=== PATIENT | female | born 1960 | race Caucasian/White ===

== ENCOUNTER 2024-09-16 11:26 | Outpatient (REF) | payer MEDICARE, MEDICAID, SELFPAY ==
--- OUTSIDE RECORDS SUMMARY | 2024-09-16 13:53 | XMS_ITS | Encounter Summary ---
Author Organization [employer] Address [address] [facility] 7t [place] [address] Care Team Providers Care Manager Service Desk Name Role Phone Micheline Garcia MD Primary Care Provider [phone] Reason for Visit * Reason Comments Med Refill Encounter Details Date Type Department Care Team ([facility] st Contact Info) Description 11/26/2023 Refill [facility] MED & PEDS [address] [place], [place] [phone] Micheline Garcia MD [address] [place] [address] Gastroesophageal reflux disease without esophagitis Social History Tobacco Use Types Packs/Day Years Used Date Smoking Tobacco: Every Day Cigarettes Passive Smoke Exposure: Current Smokeless Tobacco: Never Alcohol Use Standard Drinks/Week Comments Not Currently 0 (1 standard drink = 0.6 oz pur e alcohol) Housing Stability Answer Date Recorded What is your housing situation today? I have jayacira fatima 07/25/[address] you li ve. Do you have problems with any of the following? None of the above 07/25/2023 Food Insecurity Answer Date Recorded Within the past 12 months, y ou worried that your food would run out before you got money to buy more: Never True 07/25/2023 Within the past 12 months,th e food you bought just didn't last and you didn't have enough money to get more: Never True Transportation Answer Date Recorded In the past 12 months, has l ack of transportation kept you from medical appts, meetings, work or from getting things needed for daily living? No 07/25/2023 Utilities Answer Date Recorded In the past 12 months, has t he [employer], gas, oil or water company threatened to shut off services in your home? No 07/25/2023 Comments Unknown Sex and Gender Information Value Date Recorded Sex Assigned at Female 04/02/2022 10:20 AM EDT Legal Sex Female 10:20 AM EDT Gender Identity Female 04/02/2022 10:20 AM EDT Sexual Orientation Straight 04/02/2022 10 :20 AM EDT documented as of this encounter Plan of Treatment Upcoming Encounters Date Type Department Care Team (Late st Contact Info) Description 10/14/2024 3:00 PM EDT Medication Management [facility] MED & PEDS [address] [place] [address] Emeli Montalvo PharmD [address] [place] [address] 11/25/2024 2:45 PM EDT Clinical Support [facility] MED & PEDS [address] [place] [address] Lakshmi Lambert, AJAY [address] [place] [address] documented as of this encounter Visit Diagnoses Diagnosis Gastroesophageal reflux disease without esophagitis Esophageal reflux documented in this encounter Care Teams Manager Service Desk Relationship Specialty Start Date End Date Micheline Garcia MD [address] [place] [address] PCP - General Family Medicine 06/03/18 documented as of this encounter
--- OUTSIDE RECORDS SUMMARY | 2024-09-16 13:53 | XMS_ITS | Encounter Summary ---
Author Organization [employer] Address [address] [facility] 7t [place] [address] Care Team Providers Care Environmental Field Technician Name Role Phone Micheline Garcia MD Primary Care Provider [phone] Reason for Visit * Reason Onset Date Comments Med Refill 12/09/2023 Encounter Details Date Type Department Care Team ([facility] st Contact Info) Description 12/09/2023 Telephone [facility] MEDICINE [address] [place] [address] Micheline Garcia MD [address] [place] [address] Med Refill Social History Tobacco Use Types Packs/Day Years Used Date Smoking Tobacco: Every Day Cigarettes Passive Smoke Exposure: Current Smokeless Tobacco: Never Alcohol Use Standard Drinks/Week Comments Not Currently 0 (1 standard drink = 0.6 oz pur e alcohol) Housing Stability Answer Date Recorded What is your housing situation today? I have jaya akua 07/25/[address] you li [...] the past 12 months, has t he electric, gas, oil or water [employer] threatened to shut off services in your home? No 07/25/2023 Comments Unknown Sex and Gender Information Value Date Recorded Sex Assigned at Female 04/02/2022 10:20 AM EDT Legal Sex Female 10:20 AM EDT Gender Identity Female 04/02/2022 10:20 AM EDT Sexual Orientation Straight 04/02/2022 10 :20 AM EDT documented as of this encounter Miscellaneous Notes * Telephone Encounter - Martin Aburto - 12/09/2023 9:51 AM EDT TC from pt requesting medication refill. Medications needing refill: morphine CR (MS Contin) 60 MG 12 hr tablet To be sent to: [facility] documented in this encounter Plan of Treatment Upcoming Encounters Date Type Department Care Team (Late st Contact Info) Description 10/14/2024 3:00 PM EDT Medication Management [facility] MED & PEDS [address] [place] [address] Emeli Montalvo, PharmD [address] [place] [address] 11/25/2024 2:45 PM EDT Clinical Support [facility] MED & PEDS [address] [place] [address] Lakshmi Lambert, RN [address] [place] [address] documented as of this encounter Visit Diagnoses Not on filedocumented in this encounter Care Teams Environmental Field Technician Relationship Specialty Start Date End Date Micheline Garcia MD [address] [place] [address] PCP - General Family Medicine 06/03/18 documented as of this encounter
--- OUTSIDE RECORDS SUMMARY | 2024-09-16 13:53 | XMS_ITS | Encounter Summary ---
Author Organization [employer] Address [address] [facility] 7t [place] [address] Care Team Providers Care Wafer Fabricator Name Role Phone Micheline Garcia MD Primary Care Provider [phone] Reason for Visit * Reason Onset Date Comments Medication Question 07/30/2023 Encounter Details Date Type Department Care Team ([facility] st Contact Info) Description 07/30/2023 Telephone [facility] MEDICINE [address] [place] [address] Micheline Garcia MD [address] [place] [address] Medication Question Social History Tobacco Use Types Packs/Day Years Used Date Smoking Tobacco: Every Day Cigarettes Passive Smoke Exposure: Current Smokeless Tobacco: Never Alcohol Use Standard Drinks/Week Comments Not Currently 0 (1 standard drink = 0.6 oz pur e alcohol) Housing Stability Answer Date Recorded What is your housing situation today? I have jaya fatima 07/25/[address] you [...] the past 12 months, has t he [employer] oil or water [employer] threatened to shut off services in your home? No 07/25/2023 Comments Unknown Sex and Gender Information Value Date Recorded Sex Assigned at Female 04/02/2022 10:20 AM EDT Legal Sex Female 10:20 AM EDT Gender Identity Female 04/02/2022 10:20 AM EDT Sexual Orientation Straight 04/02/2022 10 :20 AM EDT documented as of this encounter Miscellaneous Notes * Telephone Encounter - Joelle Mello LPN - 07/30/2023 11:56 AM EST Please review message below . Insurance denied pa * Telephone Encounter - Martin Aburto - 07/30/2023 10:01 AM EST Tc from pt calling in regarding morphine CR (MS Contin) 60 MG 12 hr tablet. Pt stated insurance hasnot authorized medication and is requesting an alternative prescription. If any questions please contact pt at [phone]. documented in this encounter Plan of Treatment Upcoming Encounters Date Type Department Care Team (Late st Contact Info) Description 10/14/2024 3:00 PM EDT Medication Management [facility] MED & PEDS [address] [place] [address] Emeli Montalvo, PharmD [address] [place] [address] 11/25/2024 2:45 PM EDT Clinical Support [facility] MED & PEDS [address] [place] [address] Lkashmi Lambert, AJAY [address] [place] [address] documented as of this encounter Visit Diagnoses Not on filedocumented in this encounter Care Teams Wafer Fabricator Relationship Specialty Start Date End Date Micheline Garcia MD [address] [place], [place] PCP - General Family Medicine 1/1/19 documented as of this encounter
--- OUTSIDE RECORDS SUMMARY | 2024-09-16 13:54 | XMS_ITS | Encounter Summary ---
Author Organization [employer] Address [address] [facility] 7 [place] [address] Care Team Providers Care Vibration Analyst Name Role Phone Micheline Garcia MD Primary Care Provider [phone] Reason for Visit * Reason Onset Date Comments Appointment Request 07/11/2022 Encounter Details Date Type Department Care Team (Late Contact Info) Description 07/11/2022 Telephone [facility] MEDICINE [address] [place] [address] Micheline Garcia MD [address] [place] [address] Appointment Request Social History Tobacco Use Types Packs/Day Years Used Date Smoking Tobacco: Every Day Cigarettes Alcohol Use Standard Drinks/Week Comments Not Currently 0 (1 standard drink = 0.6 oz pur e alcohol) Comments Unknown Sex and Gender Information Value Date Recorded Sex Assigned at Female 04/02/2022 10:20 AM EDT Legal Sex Female 10:20 AM EDT Gender Identity Female 04/02/2022 10:20 AM EDT Sexual Orientation Straight 04/02/2022 10 :20 AM EDT documented as of this encounter Miscellaneous Notes * Telephone Encounter - Martinez Shine - 07/11/2022 9:16 AM EST Tc from pt requesting to r/s appt on 07/11/21 ( [employer] ) Please contact pt at [phone] documented in this encounter Plan of Treatment Upcoming Encounters Date Type Department Care Team (Late Contact Info) Description 10/14/2024 3:00 PM EDT Medication Management [facility] MED & PEDS [address] [place] [address] Emeli Montalvo, RaymundoD [address] [place] [address] 11/25/2024 2:45 PM EDT Clinical Support [facility] MED & PEDS [address] [place] [address] Lakshmi Lambert, AJAY [address] [place] [address] documented as of this encounter Visit Diagnoses Not on filedocumented in this encounter Care Teams Vibration Analyst Relationship Specialty Start Date End Date Micheline Garcia MD [address] [place] [address] PCP - General Family Medicine 06/03/18 documented as of this encounter
--- OUTSIDE RECORDS SUMMARY | 2024-09-16 13:54 | XMS_ITS | Encounter Summary ---
Author Organization [facility] [employer] Address [address] [place] [address] 7t [place] [address] Care Team Providers Care Negotiator Name Role Phone Micheline Garcia MD Primary Care Provider [phone] Encounter Details Date Type Department Care Team ([facility] Contact Info) Description 04/11/2023 Abstract [facility] MEDICINE [address] [place] [address] Dyan Dwyer Social History Tobacco Use Types Packs/Day Years [...] Description 10/14/2024 3:00 PM EDT Medication Management [facility] MED & PEDS [address] [place] [address] Emeli Montalvo, RaymundoD [address] [place] [address] 11/25/2024 2:45 PM EDT Clinical Support [facility] MED & PEDS [address] [place] [address] Lakshmi Lambert, RN [address] [place] [address] documented as of this encounter Procedures Procedure Name Priority Date/Time Associated Diagnosis Comments COLONOSCOPY Routine 11/06/2012 documented in this encounter Results * Colonoscopy (11/06/2012) Colonoscopy Normal Normal Narrative Dyan Dwyer - 11/06/2012 Recommended 5 year follow up us Historical Provider HEALTH MAINTENANCE Final Result documented in this encounter Visit Diagnoses Not on filedocumented in this encounter Care Teams Negotiator Relationship Specialty Start Date End Date Micheline Garcia MD [address] [place] [address] PCP - General Family Medicine 06/03/18 documented as of this encounter
--- OUTSIDE RECORDS SUMMARY | 2024-09-16 13:54 | XMS_ITS | Clinical Summary ---
Author Organization [employer] Address [address] [place] [address] 7t [place] [address] Care Team Providers Care Pictures Editor Name Role Phone Micheline Garcia MD Primary Care Provider [phone] Allergies Active Allergy Reactions Criticality Noted Date Comments Barium Sulfate 11/15/2022 Other reaction(s): unknown Codeine 11/15/2022 Diazepam 11/15/2022 Egg White (Egg Protein) 05/17/2017 Egg-Derived Products 05/17/2017 Other reaction(s): diarrhea Germanium Diarrhea 11/15/2022 Naproxen Angioedema,Hives 05/23/2017 Penicillin G 03/07/2023 Penicillins 12/22/2012 Other reaction(s): Unknown Medications glucose blood (FREESTYLE LITE) test strip 1 each by Other route in the morning, at noon, and at bedtime. 07/20/19 22 Active albuterol (Proventil HFA) 108 (90 Base) MCG/ACT inhaler Inhale 2 puffs every 6 (six) hours if needed for wheezing. 18 g 2 11/16/19 23 Active atorvastatin (Lipitor) 40 MG tabletIndicatio ns:Poorly controlled diabetes mellitus (CMS/HCC) TAKE ONE TABLET BY MOUTH AT BEDTIME 90 tablet 06/27/19 24 Active cholecalciferol (Vitamin D-3) 50 MCG (1999) tablet Take 1 tab orally daily 30 tablet 11 07/12/19 24 Active Fluticasone Furoate-Vilante rol (Breo Ellipta) 50-25 MCG/ACT aerosol powder Inhale 1 puff 2 times daily. 60 each 11 07/12/19 24 Active gabapentin (Neurontin) 400 MG capsule TAKE ONE CAPSULE THREE TIMES DAILY 90 capsule 1 06/08/19 25 Active acetaminophen (Tylenol 8 Hour) 650 MG ER tablet TAKE ONE TABLET BY MOUTH THREE TIMES DAILY NEEDED FOR PAIN 90 tablet 06/29/19 25 Active cetirizine (ZyrTEC) 10 MG tabletIndicatio ns:Mixed simple and mucopurulent chronic bronchitis (CMS/HCC) TAKE ONE TABLET EVERY DAY 30 tablet 5 07/09/19 25 Active naloxone (Narcan) 4 mg/0.1 mL nasal spray Administer 1 spray (4 mg) into affected nostril(s) if needed for opioid reversal. 2 each 1 07/30/19 25 Active amitriptyline (Elavil) 150 MG tablet TAKE ONE TABLET EVERY NIGHT AT BEDTIME 30 tablet 1 08/25/19 25 Active morphine CR (MS Contin) 60 MG 12 hr tabletIndicatio ns:Chronic pain syndrome Take 1 tablet (60 mg) by mouth 2 times daily. Do not crush, chew, or split. 60 tablet 09/01/19 25 025 Active albuterol (2.5 MG/3ML) 0.083% nebulizer solutionIndicat ions:Chronic obstructive pulmonary disease with acute lower respiratory infection (CMS/HCC) INHALE ONE AMPULE USING A NEBULIZER EVERY 4 HOURS NEEDED 90 mL 1 09/02/19 25 Active empagliflozin (Jardiance) 25 MG Take 1 tablet (25 mg) by mouth Once per day. 90 tablet 3 09/17/19 25 026 Active fluticasone (Flonase) 50 MCG/ACT nasal spray Administer 1-2 sprays into each nostril Once per day. 16 g 11 09/17/19 25 026 Active Omeprazole 20 MG tablet delayed-release Take 1 tablet (20 mg) by mouth Once per day. 30 tablet 3 09/17/19 25 Active SUMAtriptan (Imitrex) 25 MG tablet Take 1 tablet (25 mg) by mouth 1 (one) time if needed for migraine for up to 9 doses. 9 tablet 09/17/19 25 Active Dulaglutide (Trulicity) 0.75 MG/0.5ML solution auto-injectorIn dications:Poorl y controlled diabetes mellitus (CMS/HCC) Inject 0.75 mg under the skin 1 (one) time per week. 2 mL 2 09/17/19 25 Active albuterol (2.5 MG/3ML) 0.083% nebulizer solution Inhale 3 mL every 4 (four) hours. 02/18/20 19 025 Discontinued empagliflozin (Jardiance) 25 MG Take 1 tablet (25 mg) by mouth Once per day. 90 tablet 3 01/09/20 24 025 Discontinued(R eorder (will not trigger notification to Pharmacy)) amitriptyline (Elavil) 150 MG tablet TAKE ONE TABLET EVERY NIGHT AT BEDTIME 30 tablet 1 06/29/19 25 025 Discontinued morphine CR (MS Contin) 60 MG 12 hr tabletIndicatio ns:Chronic pain syndrome Take 1 tablet (60 mg) by mouth 2 times daily. Do not crush, chew, or split. Do not start before July 31, 2024. 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 08/27/2023 T2DM (type 2 diabetes mellitus) 11/15/2022 Ingrown toenail 05/04/2022 Osteopenia 01/01/2022 Poorly controlled diabetes mellitus 08/15/2018 Chronic pain syndrome 08/08/2016 Schizophrenia 07/03/2016 Dyspnea 09/12/2012 Chronic obstructive lung disease 01/03/2012 Depressive disorder 01/03/2012 Gastroesophageal reflux disease 01/03/2012 Lumbago 01/03/2012 Obesity 01/03/2012 Tobacco use disorder, continuous 01/03/2012 Resolved Problems Problem Noted Date Diagnosed Date Resolved Date Atrial fibrillation 05/04/2022 03/12/20 23 Encounters Date Type Department Care Team Description 09/16/2024 11:00 AM EDT Office Visit [facility] [address] [place] [address] Micheline Garcia MD Chronic obstructive pulmonary disease, unspecified COPD type (CMS/HCC) (Primary Dx); Osteopenia, unspecified location; Poorly controlled diabetes mellitus (CMS/HCC); Schizophreniform disorder (CMS/HCC); Long-term current use of opiate analgesic; Type 2 diabetes mellitus without complication, without long-term current use of insulin (CMS/HCC) 09/16/2024 Travel 09/15/2024 Telephone [facility] [address] [place] [address] Emeli Montalvo PharmD Appointment Request 09/10/2024 2:00 PM EDT Clinical Support [facility] [address] [place] [address] Lakshmi Lambert RN Chronic pain syndrome (Primary Dx); Long-term current use of opiate analgesic 09/10/2024 Telephone [facility] [address] [place] [address] Micheline Garcia MD 09/10/2024 Telephone [facility] [address] [place] [address] Lakshmi Lambert RN 09/10/2024 Travel 09/08/2024 Orders Only [facility] [address] [place] [address] Micheline Garcia MD Type 2 diabetes mellitus without complication, without long-term current use of insulin ([facility]) (Primary Dx) 09/08/2024 Telephone [facility] [address] [place] [address] Emeli Montalvo PharmD 09/01/2024 Refill [facility] [address] [place] [address] Micheline Garcia MD Chronic obstructive pulmonary disease with acute lower respiratory infection ([facility]/HCC) (Primary Dx) 08/31/2024 Refill [facility] [address] [place] [address] Micheline Garcia MD Chronic pain syndrome 08/24/2024 Refill [facility] [address] [place] [address] Micheline Garcia MD 08/14/2024 Population Health Risk Score [facility] ([facility] Department [address] [place] [address] Provider, Population Health Generic 07/30/2024 Refill [facility] [address] [place] [address] Lakshmi Lambert RN Chronic pain syndrome 07/30/2024 Refill [facility] [address] [place] [address] Micheline Garcia MD 07/30/2024 Telephone [facility] [address] [place] [address] Micheline Garcia MD Med Refill 07/07/2024 Refill [facility] [address] [place] [address] Micheline Garcia MD Mixed simple and mucopurulent chronic bronchitis (CMS/HCC) 07/01/2024 Refill [facility] [address] [place] [address] Micheline Garcia MD Chronic pain syndrome 06/27/2024 Refill [facility] [address] [place], [place] [phone] Micheline Garcia MD from Last 3 Months Immunizations Name Administration Dates Next Due Hep B, adult 05/08/2011 Tdap 04/08/2012 Social History Tobacco Use Types Packs/Day Years Used Date Smoking Tobacco: Every Day Cigarettes Passive Smoke Exposure: Current Smokeless Tobacco: Never Tobacco Cessation:Ready to Q uit: Not Asked; Counseling Given: Not Answered Alcohol Use Standard Drinks/Week Comments Not Currently 0 (1 standard drink = 0.6 oz pur e alcohol) Alcohol Answer Date Recorded How often do you have a drink containing alcohol ? 0 09/16/2024 How many drinks containing a lcohol do you have on a typical day when you are drinking? 1 09/16/2024 How often do you have six or more drinks on one occasion? 0 09/16/2024 Depression Answer Date Recorded Patient Health Questionnaire-9 Score 11 09/16/2024 Patient Health Questionnaire-9 Score 11 09/16/2024 Last PHQ-9: Questionnaire Data Not on file 0 09/16/2024 Housing Stability Answer Date Recorded What is your housing situation today? I have housing today, but I am worried about losing housing in the future 09/16/[address] you li ve. Do you have problems with any of the following? Pests such as bugs, ants, or mice;Mold 09/16/2024 Food Insecurity Answer Date Recorded Within the past 12 months, y ou worried that your food would run out before you got money to buy more: Often true 09/16/2024 Within the past 12 months,th e food you bought just didn't last and you didn't have enough money to get more: Often true Transportation Answer Date Recorded In the past 12 months, has l ack of transportation kept you from medical appts, meetings, work or from getting things needed for daily living? Yes, it has kept me from medical appointments or getting medications. 09/16/2024 Utilities Answer Date Recorded In the past 12 months, has t he electric, gas, oil or water company threatened to shut off services in your home? No 09/16/2024 Depression Answer Date Recorded Patient Health Questionnaire-2 Score 4 09/16/2024 Internet Access Answer Date Recorded Internet Access Q1 Yes 09/16/2024 Internet Access Q2 Not on file 09/16/2024 Comments Unknown Sex and Gender Information Value Date Recorded Sex Assigned at Female 04/02/2022 10:20 AM EDT Legal Sex Female 10:20 AM EDT Gender Identity Female 04/02/2022 10:20 AM EDT Sexual Orientation Straight 04/02/2022 10 :20 AM EDT Last Filed Vital Signs Vital Sign Reading Time Taken Comments Blood Pressure 152/78 09/16/2024 10:34 AM EDT Pulse 84 09/16/2024 10:34 AM EDT Temperature 36.8 ??C (98.2 ??F) 09/16/2024 10:34 AM E DT Respiratory Rate 18 09/16/2024 10:34 AM EDT Oxygen Saturation 95% 09/16/2024 10:34 AM EDT Inhaled Oxygen Concentration - - Weight 81.2 kg (179 lb) 09/16/2024 10:34 AM EDT Height 167.6 cm (5' 6 ) 09/16/2024 10:34 AM EDT Body Mass Index 28.89 09/16/2024 10:34 AM EDT Plan of Treatment Upcoming Encounters Date Type Department Care Team (Late st Contact Info) Description 10/14/2024 3:00 PM EDT Medication Management [facility] [address] [place] [address] Emeli Montalvo, PharmD [address] [place] [address] 11/25/2024 2:45 PM EDT Clinical Support [facility] [address] [place] [address] Lakshmi Lambert, RN [address] [place], [place] [phone] Health Maintenance Due Date Last Done Comments CT Colonography 1962 FIT DNA/Cologuard 1962 FIT 1962 FOBT 1962 HIV Screening 1962 Sigmoidoscopy 1962 Diabetes: Foot Exam 1972 Eye Exam 1972 Hepatitis C Screening 1980 Pneumococcal Vaccine: 50+ Years (1 of 2 - PCV) 1981 HPV/Cotest 1992 Hepatitis B Vaccines (2 of 3 - 19+ 3-dose series) 06/05/2011 05/08/2011 Zoster Vaccines (1 of 2) 2012 Cervical Cancer Screening 10/08/2016 Pap Smear 10/08/2016 10/08/2013 Colonoscopy 11/06/2017 11/06/2012 Colorectal Cancer Screening 11/06/2017 Diabetes: Urine Protein Screening 09/30/2021 09/30/2020 Lipid Panel 09/30/2021 09/30/2020 DTaP/Tdap/Td Vaccines (2 - Td or Tdap) 04/08/2022 04/08/2012 RSV Patients and Patients Aged 60 years or older (1 - Risk 60-74 years 1-dose series) 2022 Mammogram 12/19/2023 12/18/2021 COVID-19 Vaccine ( - season) 2024 Influenza Vaccine (#1) 2024 Tobacco Screening 07/15/2024 07/15/2023 Diabetes: Hemoglobin A1C 12/16/2024 025, 01/09/2024, 07/12/2023, Additional history exists Depression Monitoring 03/18/2025 09/16/2024, 025 Alcohol/Substance Use Screening 09/16/2025 09/16/2024 Depression Screening 09/16/2025 09/16/2024, 09/17/19 25 SDOH Screening 09/16/2025 09/16/2024 HIB Vaccines Aged Out No longer eligi ble based on patient's age to complete this topic HPV Vaccines Aged Out No longer eligi ble based on patient's age to complete this topic Hepatitis A Vaccines Aged Out No long er eligible based on patient's age to complete this topic IPV Vaccines Aged Out No longer eligi ble based on patient's age to complete this topic Meningococcal Vaccine Aged Out No nicol jenna eligible based on patient's age to complete this topic RSV under 20 months Aged Out No longe r eligible based on patient's age to complete this topic Rotavirus Vaccines Aged Out No longer eligible based on patient's age to complete this topic Procedures Procedure Name Priority Date/Time Associated Diagnosis Comments POCT GLUCOSE Routine 09/16/2024 10:36 AM EDT Type 2 diabetes mellitus without complication, without long-term current use of insulin ([facility]) POCT GLYCATED HEMOGLOBIN, TOTAL Routine 09/16/2024 10:36 AM EDT Type 2 diabetes mellitus without complication, without long-term current use of insulin ([facility]) POCT JOSE ROBERTO-14 URINE DRUG SCREEN Routine 09/10/2024 2:08 PM EDT Long-term current use of opiate analgesic Chronic pain syndrome HM MAMMOGRAPHY Routine 12/18/2021 ALBUMIN, RANDOM URINE W/CREATININE Routine 09/30/2020 9:57 AM EDT LIPID PANEL, STANDARD Routine 09/30/2020 9:57 AM EDT HM PAP/HPV Routine 10/08/2013 COLONOSCOPY Routine 11/06/2012 from Last 3 Months or Most Recently Relevant to Health Maintenance Results * (ABNORMAL) POCT A1C (09/16/2024 10:36 AM EDT) Hemoglobin A1C 10.6(A) 4.0 - 6.0 % QC Media Lot # Comment:[id number] Lot# Expiration Date Comment:04/21/2026 Blood 09/16/2024 10:3 6 AM EDT Micheline Garcia MD POINT OF CARE TEST ENTER/EDIT ORDERABLES Final Result * (ABNORMAL) POCT glucose manually resulted (09/16/2024 10:36 AM EDT) Glucose Blood, POC 416(A) 60 - 200 mg/dL QC Media Lot # Comment:[id number] Lot# Expiration Date Comment:12/03/2024 Blood Capillary blood specimen / Unknown 09/16/2024 10:36 AM EDT Micheline Garcia MD POINT OF CARE TEST ENTER/EDIT ORDERABLES Final Result * POCT JOSE ROBERTO-14 Urine Drug Screen (09/10/2024 2:08 PM EDT) Opiate Screen, Urine Positive TCA, Urine Positive Urine Urine specimen obtained by clean catch procedure / Unknown 09/10/2024 2:08 PM EDT Narrative Lakshmi Lambert RN - 09/10/2024 2:08 PM EDT Lot# [id number] Exp: 01-20-26 Micheline Garcia MD POINT OF CARE TEST ENTER/EDIT ORDERABLES Final Result * Mammography (12/18/2021) Mammogram performed Anatomical Region Laterality Modality Other Historical Provider HEALTH MAINTENANCE Final Result * ALBUMIN, RANDOM URINE W/CREATININE (09/30/2020 9:57 AM EDT) Microalbumin Urine 0.5 See Note: mg/dL [facility] Comment: Reference Range: ?? Reference Range Not established Microalb/Creat Ratio 6 <30 mcg/mg creat [facility] Comment: ?? The ADA defines abnormalities in albumin excretion as follows: ?? Category ? Result (mcg/mg creatinine) ?? Normal ?<30 Microalbuminuria ? 30-299 ?? Clinical albuminuria ?? > OR = 300 ?? The ADA recommends that at least two of three specimens collected within a 3-6 month period be abnormal before considering a patient to be within a diagnostic category. Creatinine, Urine 77 20 - 275 mg/dL [facility] 09/30/2020 9:57 AM EDT Micheline Garcia MD LAB URINE ORDERABLES Final Re sult [facility] [address] * (ABNORMAL) LIPID PANEL, STANDARD (09/30/2020 9:57 AM EDT) Chol/HDLC Ratio 2.5 <5.0 (calc) [facility] Cholesterol, Total 108 <200 mg/dL [facility] HDL Cholesterol 43(L) > OR = 50 mg/dL [facility] LDL Cholesterol 41 mg/dL (calc) [facility] Comment: Reference range: <100 ?? Desirable range <100 mg/dL for primary prevention; ?? <70 mg/dL for patients with CHD or diabetic patients ?? with > or = 2 CHD risk factors. ?? LDL-C is now calculated using the Casimiro ?? calculation, which is a validated novel method providing ?? better accuracy than the Friedewald equation in the ?? estimation of LDL-C. ?? Alexandre HUFF et al. ASHLEIGH. 2013;310(19): 6547-4586 ?? (http://education.QuestDiagnostics.IndustryTrader.com/faq/YIM196) Non-HDL Cholesterol 65 <130 mg/dL (calc) [facility] Comment: For patients with diabetes plus 1 major ASCVD risk ?? factor, treating to a non-HDL-C goal of <100 mg/dL ?? (LDL-C of <70 mg/dL) is considered a therapeutic ?? option. Triglycerides 160(H) <150 mg/dL [facility] 09/30/2020 9:57 AM EDT Micheline Garcia MD LAB BLOOD ORDERABLES Final Re sult [facility] [address] * Pap Smear (10/08/2013) Pap smear performed Historical Provider HEALTH MAINTENANCE Final Result * Colonoscopy (11/06/2012) Colonoscopy Normal Normal Narrative Dyan Dwyer - 11/06/2012 Recommended 5 year follow up Historical Provider HEALTH MAINTENANCE Final Result from Last 3 Months or Most Recently Relevant to Health Maintenance Insurance MEDIC[place] [address] [place] [id number] [facility] STANDARD Care Teams Pictures Editor Relationship Specialty Start Date End Date Micheline Garcia MD [address] [place] [id number] PCP - General Family Medicine 06/03/18
--- OUTSIDE RECORDS SUMMARY | 2024-09-16 13:54 | XMS_ITS | Encounter Summary ---
Author Organization [employer] Address [address] [place] [address] [address] [place] [address] Care Team Providers Care Room Inspector Name Role Phone Micheline Garcia MD Primary Care Provider [phone] Reason for Visit * Reason Comments Med Refill Encounter Details Date Type Department Care Team ([facility] Contact Info) Description 07/04/2023 Refill [facility] [address] [place] [address] Micheline Garcia MD [address] [place] [address] Chronic pain syndrome Social History Tobacco Use Types Packs/Day Years [...] Upcoming Encounters Date Type Department Care Team ([facility] Contact Info) Description 10/14/2024 3:00 PM EDT Medication Management [facility] [address] [place] [address] Emeli Montalvo, PharmD [address] [place] [address] 11/25/2024 2:45 PM EDT Clinical Support [facility] [address] [place] [address] Lakshmi Lambert, AJAY [address] [place] [address] documented as of this encounter Visit Diagnoses Diagnosis Chronic pain syndrome documented in this encounter Care Teams Room Inspector Relationship Specialty Start Date End Date Micheline Garcia MD [address] [place] [address] PCP - General Family Medicine 06/03/18 documented as of this encounter
--- OUTSIDE RECORDS SUMMARY | 2024-09-16 13:54 | XMS_ITS | Encounter Summary ---
Author Organization [employer] Address [address] [facility] 7t [place] [address] Care Team Providers Care Cattle Brander Name Role Phone Micheline Garcia MD Primary Care Provider Reason for Visit * Reason Onset Date Comments Med Refill 01/30/2024 Encounter Details Date Type Department Care Team ([facility] st Contact Info) Description 01/30/2024 Telephone [facility] [address] [place] [address] Micheline Garcia MD [address] [place] [phone] Med Refill Social History Tobacco Use Types [...] t he electric, gas, oil or water [email or web address] threatened to shut off services in your home? No 07/25/2023 Comments Unknown Sex and Gender Information Value Date Recorded Sex Assigned at Female 04/02/2022 10:20 AM EDT Legal Sex Female 10:20 AM EDT Gender Identity Female 04/02/2022 10:20 AM EDT Sexual Orientation Straight 04/02/2022 10 :20 AM EDT documented as of this encounter Miscellaneous Notes * Telephone Encounter - Rodriguez Silva - 01/30/2024 3:16 PM EDT TC from pt requesting medication refill. Medications needing refill : morphine CR (MS Contin) 60 MG 12 hr tablet To be sent to: [facility] [place] [facility] - [address] documented in this encounter Plan of Treatment Upcoming Encounters Date Type Department Care Team ([facility] st Contact Info) Description 10/14/2024 3:00 PM EDT Medication Management [facility] [address] [place] [address] Emeli Montalvo, PharmD [address] [place] [address] 11/25/2024 2:45 PM EDT Clinical Support [facility] [address] [place] [address] Lakshmi Lambert, RN [address] [place] [address] documented as of this encounter Visit Diagnoses Not on filedocumented in this encounter Care Teams Cattle Brander Relationship Specialty Start Date End Date Micheline Garcia MD [address] [place] [address] PCP - General Family Medicine 06/03/18 documented as of this encounter
--- OUTSIDE RECORDS SUMMARY | 2024-09-16 13:54 | XMS_ITS | Encounter Summary ---
Author Organization [employer] Address [address] [facility] 7t [place] [address] Care Team Providers Care Remote Sensing Specialist Name Role Phone Micheline Garcia MD Primary Care Provider [phone] Reason for Visit * Reason Comments Med Refill Encounter Details Date Type Department Care Team ([facility] st Contact Info) Description 12/27/2023 Refill [facility] [address] [place], [place] [phone] Micheline Garcia MD [address] [place] [address] Chronic pain syndrome; Diabetic autonomic neuropathy associated with type 2 diabetes mellitus (CMS/HCC) Social History Tobacco Use Types Packs/Day Years [...] [facility] [address] [place] [address] Emeli Montalvo PharmD [address] [place] [address] 11/25/2024 2:45 PM EDT Clinical Support [facility] [address] [place] [address] Lakshmi Lambert, RN [address] [place] [address] documented as of this encounter Visit Diagnoses Diagnosis Chronic pain syndrome Diabetic autonomic neuropathy associated with type 2 diabetes mellitus ([facility]) Type II or unspecified type diabetes mellitus with neurological manifestations, not stated as uncontrolled documented in this encounter Care Teams Remote Sensing Specialist Relationship Specialty Start Date End Date Micheline Garcia MD [address] [place] [address] PCP - General Family Medicine 06/03/18 documented as of this encounter
--- OUTSIDE RECORDS SUMMARY | 2024-09-16 13:54 | XMS_ITS | Continuity of Care Document ---
Author Name [facility] Organization [facility] Care Team Providers Care Building Mechanic Name Role Phone [facility] Unavailable Unavailable Problems Combined list of problems from Department of Defense and Veterans Affairs facilities. It does not include entries that were removed or entered in error. Problem Status Onset Date Problem Type Date of Resolution Comments Source Diagnosis: ICD-10-CM F41.9 Anxiety disorder, unspecified Active Diagnosis [place] [facility] [place] [facility] Encounters Combined list of: 1) Encounters from Department of Veterans Affairs facilities going backup to the last 18 months, not all [place] inpatient encounters are included; 2) Encounters from the Department of Defense facilities going backup to 280 months. Location Location Details Encounter Type Encounter Number Reason For Visit Attending Provider ADM Date DC Date Status Disposition Source [place] [facility] [place] [facility] Outpatient Encounter [id number] Diagnos is: ICD-10- CM F41.9 Anxiety disorde r, unspeci fied FEARINGROBERTO CARLOS 10/03 [place] [facility] [place] [facility] [place] [facility] Outpatient Encounter [id number] FEARINGROBERTO CARLOS 10/03 [place] [facility] [place] [facility]
--- OUTSIDE RECORDS SUMMARY | 2024-09-16 13:54 | XMS_ITS | Encounter Summary ---
Author Organization [employer] Address 75 [facility] 7 [place] [address] Care Team Providers Care Exterior Door Installer Name Role Phone Micheline Garcia MD Primary Care Provider [phone] Reason for Visit * Reason Onset Date Comments Med Refill 11/28/2022 Encounter Details Date Type Department Care Team ([facility] st Contact Info) Description 11/28/2022 Telephone [facility] MED & PEDS [address] [place], [place] [phone] Micheline Garcia MD 505 [place] [address] Med Refill Social History Tobacco Use Types [...] Orientation Straight 04/02/2022 10 :20 AM EDT COVID-19 Exposure Response Date Recorded In the last 10 days, have yo u been in contact with someone who was confirmed or suspected to have Coronavirus/COVID-19? No / Unsure 11/15/2022 12:47 PM EDT documented as of this encounter Miscellaneous Notes * Telephone Encounter - Leigh Mcwilliams - 11/28/2022 1:19 PM EDT Tc from patient requesting a med refill on medication morphine ER [address] Garcia documented in this encounter Plan of Treatment Upcoming Encounters Date Type Department Care Team (Late st Contact Info) Description 10/14/2024 3:00 PM EDT Medication Management [facility] MED & PEDS [address] [place] [address] Emeli Montalvo, PharmD [address] [place] [address] 11/25/2024 2:45 PM EDT Clinical Support [facility] MED & PEDS [address] [place] [address] Lakshmi Lambert, AJAY 505 [place], [place] [phone] documented as of this encounter Visit Diagnoses Not on filedocumented in this encounter Care Teams Exterior Door Installer Relationship Specialty Start Date End Date Micheline Garcia MD [address] [place] [address] PCP - General Family Medicine 06/03/18 documented as of this encounter
--- OUTSIDE RECORDS SUMMARY | 2024-09-16 13:54 | XMS_ITS | Encounter Summary ---
Author Organization [employer] Address 75 [facility] 7t [place] [address] Care Team Providers Care Fire Claims Adjuster Name Role Phone Micheline Garcia MD Primary Care Provider [phone] Encounter Details Date Type Department Care Team (Latest Contact Info) Description 09/16/2024 Travel Social History Tobacco Use Types Packs/Day Years [...] Description 10/14/2024 3:00 PM EDT Medication Management [facility] MED & PEDS [address] [place] [address] Emeli Montalvo, PharmD [address] [place] [address] 11/25/2024 2:45 PM EDT Clinical Support [facility] MED & PEDS [address] [place] [address] Lakshmi Lambert, RN 505 [place] [address] documented as of this encounter Visit Diagnoses Not on filedocumented in this encounter Additional Health Concerns Assessment Noted Time PHQ-9 Depression Total Score: 11 025 11:27 AM EDT documented as of this encounter Care Teams Fire Claims Adjuster Relationship Specialty Start Date End Date Micheline Garcia MD [address] [place] [address] PCP - General Family Medicine 06/03/18 documented as of this encounter
--- OUTSIDE RECORDS SUMMARY | 2024-09-16 13:54 | XMS_ITS | Encounter Summary ---
Author Organization [employer] Address 75 [facility] 7t [place] [address] Care Team Providers Care Noc Analyst Name Role Phone Micheline Garcia MD Primary Care Provider [phone] Reason for Visit * Reason Onset Date Comments Med Refill 07/30/2024 Encounter Details Date Type Department Care Team ([facility] st Contact Info) Description 07/30/2024 Telephone [facility] [address] [place] [address] Micheline Garcia MD [address] [place] [id number] Med Refill Social History Tobacco Use Types [...] t he electric, gas, oil or water [employer] threatened to shut off services in your home? No 07/25/2023 Comments Unknown Sex and Gender Information Value Date Recorded Sex Assigned at Female 04/02/2022 10:20 AM EDT Legal Sex Female 10:20 AM EDT Gender Identity Female 04/02/2022 10:20 AM EDT Sexual Orientation Straight 04/02/2022 10 :20 AM EDT documented as of this encounter Miscellaneous Notes * Telephone Encounter - Feng Dickson - 07/30/2024 10:54 AM EST TC from pt requesting medication refill. Medications needing refill : morphine CR (MS Contin) 60 MG 12 hr tablet To be sent to: [facility] - [address] documented in this encounter Plan of Treatment Upcoming Encounters Date Type Department Care Team ([facility] st Contact Info) Description 10/14/2024 3:00 PM EDT Medication Management [facility] MED & PEDS [address] [place] [address] Emeli Montalvo, PharmD 230 [place] [address] 11/25/2024 2:45 PM EDT Clinical Support [facility] MED & PEDS [address] [place] [address] Lakshmi Lambert, RN 505 [place] [address] documented as of this encounter Visit Diagnoses Not on filedocumented in this encounter Care Teams Noc Analyst Relationship Specialty Start Date End Date Micheline Garcia MD 505 [place] [address] PCP - General Family Medicine 06/03/18 documented as of this encounter
--- OUTSIDE RECORDS SUMMARY | 2024-09-16 13:54 | XMS_ITS | Encounter Summary ---
Author Organization [employer] Address [address] [place] [address] 7t [place] [address] Care Team Providers Care Operations Systems Specialist Name Role Phone Micheline Garcia MD Primary Care Provider [phone] Encounter Details Date Type Department Care Team ([facility] Contact Info) Description 05/03/2022 Orders Only [facility] MEDICINE [address] [place], [place] [phone] Magda Becerra MD [address] [place], [place] [phone] Gastroesophageal reflux disease without esophagitis (Primary Dx); Ingrown toenail Social History Tobacco Use Types Packs/Day Years Used Date Smoking Tobacco: Never Assessed Comments Unknown Sex and Gender Information Value [...] suspected to have Coronavirus/COVID-19? No / Unsure 05/03/2022 1:06 PM EST documented as of this encounter Plan of Treatment Upcoming Encounters Date Type Department Care Team ([facility] Contact Info) Description 10/14/2024 3:00 PM EDT Medication Management [facility] MED & PEDS [address] [place], [place] [phone] Emeli Montalvo, PharmD 230 [place] [address] 11/25/2024 2:45 PM EDT Clinical Support [facility] MED & PEDS [address] [place] [address] Lakshmi Lambert RN 505 [place] [address] documented as of this encounter Visit Diagnoses Diagnosis Gastroesophageal reflux disease without esophagitis- Primary Esophageal reflux Ingrown toenail Ingrowing nail documented in this encounter Care Teams Operations Systems Specialist Relationship Specialty Start Date End Date Micheline Garcia MD [address] [place] [address] PCP - General Family Medicine 06/03/18 documented as of this encounter
--- OUTSIDE RECORDS SUMMARY | 2024-09-16 13:54 | XMS_ITS | Encounter Summary ---
Author Organization [employer] Address 75 [facility] 7 [place] [address] Care Team Providers Care Fiberglass Pipe Covering Supervisor Name Role Phone Micheline Garcia MD Primary Care Provider [phone] Reason for Visit * Reason Comments Follow-up Chronic conditions Encounter Details Date Type Department Care Team ([facility] st Contact Info) Description 09/16/2024 11:00 AM EDT Office Visit [facility] MED & PEDS 505 [place], [place] [phone] Micheline Garcia MD 505 [place] [address] Chronic obstructive pulmonary disease, unspecified COPD type (CMS/HCC) (Primary Dx); Osteopenia, unspecified location; Poorly controlled diabetes mellitus (CMS/HCC); Schizophreniform disorder (CMS/HCC); Long-term current use of opiate analgesic; Type 2 diabetes mellitus without complication, without long-term current use of insulin (CMS/HCC) Social History Tobacco Use Types Packs/Day [...] AM EDT documented as of this encounter Last Filed Vital Signs Vital Sign Reading [...] Mass Index 28.89 09/16/2024 10:34 AM EDT documented in this encounter Plan of Treatment Upcoming Encounters Date Type Department Care Team (Late st Contact Info) Description 10/14/2024 3:00 PM EDT Medication Management [facility] MED & PEDS [address] [place] [address] Emeli Montalvo PharmD [address] [place] [address] 11/25/2024 2:45 PM EDT Clinical Support [facility] MED & PEDS [address] [place] [address] Lakshmi Lambert, AJAY [address] [place] [address] Scheduled Orders Name Type Priority Associated Diagnoses Orde r Schedule Lipid Panel, Standard Lab Routine Chronic obstructive pulmonary disease, unspecified COPD type (CMS/HCC) Osteopenia, unspecified location Poorly controlled diabetes mellitus (CMS/HCC) Schizophreniform disorder (CMS/HCC) Long-term current use of opiate analgesic Type 2 diabetes mellitus without complication, without long-term current use of insulin (CMS/HCC) Expected: 09/16/2024 (Approximate), Expires: 09/16/2025 CBC auto differential Lab Routine Chronic obstructive pulmonary disease, unspecified COPD type (CMS/HCC) Osteopenia, unspecified location Poorly controlled diabetes mellitus (CMS/HCC) Schizophreniform disorder (CMS/HCC) Long-term current use of opiate analgesic Type 2 diabetes mellitus without complication, without long-term current use of insulin (CMS/HCC) Expected: 09/16/2024 (Approximate), Expires: 09/16/2025 Albumin, Random Urine W/Creatinine Lab Routine Chronic obstructive pulmonary disease, unspecified COPD type (CMS/HCC) Osteopenia, unspecified location Poorly controlled diabetes mellitus (CMS/HCC) Schizophreniform disorder (CMS/HCC) Long-term current use of opiate analgesic Type 2 diabetes mellitus without complication, without long-term current use of insulin (CMS/HCC) Expected: 09/16/2024 (Approximate), Expires: 09/16/2025 TSH W/Reflex to FT4 Lab Routine Chronic obstructive pulmonary disease, unspecified COPD type (CMS/HCC) Osteopenia, unspecified location Poorly controlled diabetes mellitus (CMS/HCC) Schizophreniform disorder (CMS/HCC) Long-term current use of opiate analgesic Type 2 diabetes mellitus without complication, without long-term current use of insulin (CMS/HCC) Expected: 09/16/2024 (Approximate), Expires: 09/16/2025 Hepatic Function Panel Lab Routine Chronic obstructive pulmonary disease, unspecified COPD type (CMS/HCC) Osteopenia, unspecified location Poorly controlled diabetes mellitus (CMS/HCC) Schizophreniform disorder (CMS/HCC) Long-term current use of opiate analgesic Type 2 diabetes mellitus without complication, without long-term current use of insulin (CMS/HCC) Expected: 09/16/2024 (Approximate), Expires: 09/16/2025 Magnesium Lab Routine Chronic obstructive pulmonary disease, unspecified COPD type (CMS/HCC) Osteopenia, unspecified location Poorly controlled diabetes mellitus (CMS/HCC) Schizophreniform disorder (CMS/HCC) Long-term current use of opiate analgesic Type 2 diabetes mellitus without complication, without long-term current use of insulin (CMS/HCC) Expected: 09/16/2024, Expires: 09/16/2025 Vitamin D, 25-Hydroxy, Total, Immunoassay Lab Routine Chronic obstructive pulmonary disease, unspecified COPD type (CMS/HCC) Osteopenia, unspecified location Poorly controlled diabetes mellitus (CMS/HCC) Schizophreniform disorder (CMS/HCC) Long-term current use of opiate analgesic Type 2 diabetes mellitus without complication, without long-term current use of insulin (CMS/HCC) Expected: 09/16/2024 (Approximate), Expires: 09/16/2025 Creatine Kinase, Total Lab Routine Chronic obstructive pulmonary disease, unspecified COPD type (CMS/HCC) Osteopenia, unspecified location Poorly controlled diabetes mellitus (CMS/HCC) Schizophreniform disorder (CMS/HCC) Long-term current use of opiate analgesic Type 2 diabetes mellitus without complication, without long-term current use of insulin (CMS/HCC) Expected: 09/16/2024, Expires: 09/16/2025 Basic Metabolic Panel, Fasting Lab Routine Chronic obstructive pulmonary disease, unspecified COPD type (CMS/HCC) Osteopenia, unspecified location Poorly controlled diabetes mellitus (CMS/HCC) Schizophreniform disorder (CMS/HCC) Long-term current use of opiate analgesic Type 2 diabetes mellitus without complication, without long-term current use of insulin ([facility]) Expected: 09/16/2024 (Approximate), Expires: 09/16/2025 documented as of this encounter Procedures Procedure Name Priority Date/Time Associated Diagnosis Comments POCT GLYCATED HEMOGLOBIN, TOTAL Routine 09/16/2024 10:36 AM EDT Type 2 diabetes mellitus without complication, without long-term current use of insulin ([facility]) POCT GLUCOSE Routine 09/16/2024 10:36 AM EDT Type 2 diabetes mellitus without complication, without long-term current use of insulin ([facility]) documented in this encounter Results * (ABNORMAL) POCT glucose manually resulted (09/16/2024 10:36 AM EDT) Glucose Blood, POC 416(A) 60 - 200 mg/dL QC Media Lot # Comment:[id number] Lot# Expiration Date Comment:12/03/2024 Blood Capillary blood specimen / Unknown 09/16/2024 10:36 AM EDT Micheline Garcia MD POINT OF CARE TEST ENTER/EDIT ORDERABLES Final Result * (ABNORMAL) POCT A1C (09/16/2024 10:36 AM EDT) Hemoglobin A1C 10.6(A) 4.0 - 6.0 % QC Media Lot # Comment:[id number] Lot# Expiration Date Comment:04/21/2026 Blood 09/16/2024 10:3 6 AM EDT us Micheline Garcia MD POINT OF CARE TEST ENTER/EDIT ORDERABLES Final Result documented in this encounter Visit Diagnoses Diagnosis Chronic obstructive pulmonary disease, unspecified COPD type ([facility])- Primary Osteopenia, unspecified location Poorly controlled diabetes mellitus ([facility]) Type II or unspecified type diabetes mellitus without mention of complication, not stated as uncontrolled Schizophreniform disorder ([facility]) Schizophreniform disorder, unspecified condition Long-term current use of opiate analgesic Encounter for long-term (current) use of other medications Type 2 diabetes mellitus without complication, without long-term current use of insulin ([facility]) documented in this encounter Administered Medications Inactive Administered Medications - up to 3 most recent administrations Medication Order MAR Action Action Date Dose Rate Site Insulin Lispro solution 10 Units 10 Units, Injection, Once, On Sat09/16/24 at 1115, For 1 doseIndications:Poorly controlled diabetes mellitus (CMS/[facility]) Given 09/16/2024 11:15 AM EDT 10 Units documented in this encounter Additional Health Concerns Assessment Noted Time PHQ-9 Depression Total Score: 11 025 11:27 AM EDT documented as of this encounter Care Teams Fiberglass Pipe Covering Supervisor Relationship Specialty Start Date End Date Micheline Garcia MD [address] [place] [address] PCP - General Family Medicine 06/03/18 documented as of this encounter
--- OUTSIDE RECORDS SUMMARY | 2024-09-16 13:54 | XMS_ITS | Encounter Summary ---
Author Organization [employer] Address 75 [facility] 7t [place] [address] Care Team Providers Care Client Coordinator Name Role Phone Micheline Garcia MD Primary Care Provider [phone] Reason for Visit * Reason Onset Date Comments Appointment Request 09/15/2024 Encounter Details Date Type Department Care Team ([facility] st Contact Info) Description 09/15/2024 Telephone [facility] MED & PEDS [address] [place], [place] [phone] Emeli Montalvo, PharmD [address] [place] [address] Appointment Request Social History Tobacco Use Types [...] encounter Miscellaneous Notes * Telephone Encounter - Emeli Montalvo PharmD - 09/15/2024 1:37 PM EDT Called patient to offer CDTM. Patient states will call back another time to schedule initial visit.Phone number for pharmacy [facility] given, . Patient sees PCP tomorrow 09/16. documented in this encounter Plan of Treatment Upcoming Encounters Date Type Department Care Team (Late st Contact Info) Description 10/14/2024 3:00 PM EDT Medication Management [facility] MED & PEDS [address] [place] [address] Emeli Montalvo PharmD [address] [place] [address] 11/25/2024 2:45 PM EDT Clinical Support [facility] MED & PEDS [address] [place] [address] Lakshmi Lambert, AJAY 505 [place] [address] documented as of this encounter Visit Diagnoses Not on filedocumented in this encounter Care Teams Client Coordinator Relationship Specialty Start Date End Date Micheline Garcia MD [address] [place] [address] PCP - General Family Medicine 06/03/18 documented as of this encounter
--- OUTSIDE RECORDS SUMMARY | 2024-09-16 13:54 | XMS_ITS | Encounter Summary ---
Author Organization [employer] Address 75 [facility] 7t [place] [address] Care Team Providers Care Torts Law Professor Name Role Phone Micheline Garcia MD Primary Care Provider [phone] Reason for Visit * Reason Onset Date Comments Med Refill 04/29/2024 Encounter Details Date Type Department Care Team ([facility] st Contact Info) Description 04/29/2024 Telephone [facility] MEDICINE [address] [place] [address] Micheline Garcia MD [address] [place] [address] Med Refill Social History Tobacco Use Types [...] t he electric, gas, oil or water [employer] threatened to shut off services in your home? No 07/25/2023 Comments Unknown Sex and Gender Information Value Date Recorded Sex Assigned at Female 04/02/2022 10:20 AM EDT Legal Sex Female 10:20 AM EDT Gender Identity Female 04/02/2022 10:20 AM EDT Sexual Orientation Straight 04/02/2022 10 :20 AM EDT documented as of this encounter Miscellaneous Notes * Telephone Encounter - Raine Wright - 04/29/2024 9:49 AM EST TC from pt requesting medication refill. Medications needing refill : morphine CR (MS Contin) 60 MG 12 hr tablet To be sent to: [facility] documented in this encounter Plan of Treatment Upcoming Encounters Date Type Department Care Team (Late st Contact Info) Description 10/14/2024 3:00 PM EDT Medication Management [facility] MED & PEDS [address] [place] [address] Emeli Montalvo, PharmD 230 [place] [address] 11/25/2024 2:45 PM EDT Clinical Support [facility] MED & PEDS [address] [place] [address] Lakshmi Lambert, RN [address] [place] [address] documented as of this encounter Visit Diagnoses Not on filedocumented in this encounter Care Teams Torts Law Professor Relationship Specialty Start Date End Date Micheline Garcia MD [address] [place] [address] PCP - General Family Medicine 06/03/18 documented as of this encounter
--- OUTSIDE RECORDS SUMMARY | 2024-09-16 13:54 | XMS_ITS | Encounter Summary ---
Author Organization [employer] Address 75 [facility] 7 [place] [address] Care Team Providers Care Industrial Automation Engineer Name Role Phone Micheline Garcia MD Primary Care Provider [phone] Reason for Visit * Reason Onset Date Comments Med Refill 05/28/2023 Encounter Details Date Type Department Care Team ([facility] st Contact Info) Description 05/28/2023 Telephone [facility] MED & PEDS [address] [place], [place] [phone] Micheline Garcia MD [address] [place] [address] Med Refill Social History Tobacco Use Types [...] encounter Miscellaneous Notes * Telephone Encounter - Susan Hall - 05/28/2023 9:41 AM EST TC from pt requesting medication refill. Medications needing refill : morphine ER (Kari) 60 MG 24 hr capsule To be sent to: [facility] - [place], [place] - [address] [facility] documented in this encounter Plan of Treatment Upcoming Encounters Date Type Department Care Team (Late st Contact Info) Description 10/14/2024 3:00 PM EDT Medication Management [facility] MED & PEDS [address] [place] [address] Emeli Montalvo, PharmD [address] [place] [address] 11/25/2024 2:45 PM EDT Clinical Support [facility] MED & PEDS [address] [place], [place] [phone] Lakshmi Lambert, RN 505 [place], [place] [phone] documented as of this encounter Visit Diagnoses Not on filedocumented in this encounter Care Teams Industrial Automation Engineer Relationship Specialty Start Date End Date Micheline Garcia MD [address] [place] [address] PCP - General Family Medicine 06/03/18 documented as of this encounter
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
[2024-09-16 14:33] LABS: MANUAL DIFF FLAG NO
[2024-09-16 14:50] LABS: Basophils Absolute Auto 0.1 X10*3/uL (0.0-0.2); Basophils Percent Auto 0.9 % (0-2); Eosinophils Absolute Auto 0.2 X10*3/uL (0.0-0.4); Eosinophils Percent Auto 2.6 % (0-4); Hematocrit 48.7 % (37.0-47.0); Hemoglobin 16.1 g/dl (12.0-16.0); Imm Gran Abs Auto 0.04 X10*3/uL (0.00-0.03); Imm Gran Pct Auto 0.4 % (0.0-0.4); Lymphocytes Absolute Auto 3.3 X10*3/uL (1.2-4.9); Lymphocytes Percent Auto 36.8 % (20-40); Mean Corpuscular HGB Conc 33.1 g/dl (31.0-35.0); Mean Corpuscular Hemoglobin 31.4 pg (27.0-33.0); Mean Corpuscular Volume 94.9 fL (80.0-98.0); Mean Platelet Volume 10.3 fL (9.4-12.3); Monocytes Absolute Auto 0.6 X10*3/uL (0.1-1.2); Monocytes Percent Auto 6.6 % (2-11); Neutrophils Absolute Auto 4.8 x10*3/uL (2.0-8.3); Neutrophils Percent Auto 52.7 % (45-73); Platelet Count 279 X10*3/uL (160-400); Red Blood Count 5.13 X10*6/uL (4.20-5.50); Red Cell Distribution Width 12.9 % (11.0-16.0); White Blood Count 9.1 X10*3/uL (4.8-10.8)
[2024-09-16 15:34] LABS: Creatinine Urine 25.49 mg/dL; Microalbum/Creatinine Ratio Ur 58.8 ug/mg cr (<30)
[2024-09-16 16:30] LABS: Alanine Aminotransferase 10 U/L (0-31); Albumin Level 3.9 g/dL (3.5-5.0); Alkaline Phosphatase 114 U/L (39-117); Anion Gap 11 (12-20); Aspartate Amino Transferase 18 U/L (5-31); Bilirubin Direct 0.2 mg/dL (0.0-0.5); Bilirubin Total 0.3 mg/dL (0.0-1.0); Blood Urea Nitrogen 7 mg/dL (9-16); Calcium 9.1 mg/dL (8.4-10.2); Carbon Dioxide 30 mmol/L (22-29); Chloride 100 mmol/L (96-108); Cholesterol 149 mg/dL (<200); Estimated Glomerular Filt Rate > 60; Glucose Fasting 338 mg/dL (60-99); HDL Cholesterol 41 mg/dL (>40); LDL Cholesterol Calculated 76 mg/dL (<100); Magnesium 2.1 mg/dL (1.6-2.6); Potassium 3.9 mmol/L (3.3-5.1); Sodium 137 mmol/L (135-145); Total Protein 7.3 g/dL (6.5-8.0); Triglycerides 163 mg/dL (<150)
[2024-09-16 16:45] LABS: Vitamin D 25-OH Total 27.3 ng/mL (>30)
== END 2024-09-16 11:27 | disposition home or self-care (01) ==
LOC: HO.CHCLDS 11:26
PROVIDERS: Visit Provider Pediatrics
DX: J44.9 Chronic obstructive pulmonary disease, unspecified (principal); M85.80 Other specified disorders of bone density and structure, unspecified site; E11.65 Type 2 diabetes mellitus with hyperglycemia; F20.81 Schizophreniform disorder; E11.9 Type 2 diabetes mellitus without complications; Z79.891 Long term (current) use of opiate analgesic
CPT/HCPCS: 36415; 80048; 80061; 80076; 82043; 82306; 82550; 82570; 83735; 84443; 85025

== ENCOUNTER 2025-05-17 13:44 | Outpatient (REF) | payer MEDICARE, MEDICAID, SELFPAY ==
--- OUTSIDE RECORDS SUMMARY | 2025-05-17 20:00 | XMS_ITS | Encounter Summary ---
Author Organization [employer] Address [address] [facility] 7t [place] [address] Care Team Providers Care Premix Concrete Batcher Name Role Phone Micheline Garcia MD Primary Care Provider [phone] Emeli Montalvo PharmD Unavailable [phone] Reason for Visit * Reason Onset Date Comments Medication Question 07/30/2023 Encounter Details Date Type Department Care Team ([facility] st Contact Info) Description 07/30/2023 Telephone [facility] MEDICINE [address] [place] [address] Micheline Garcia MD 505 [place], [place] [phone] Medication Question Social History Tobacco Use Types [...] If any questions please contact pt at [phone]. documented in this encounter Plan of Treatment Upcoming Encounters Date Type Department Care Team (Late st Contact Info) Description 06/10/2025 1:30 PM EST Clinical Support [facility] MED & PEDS 505 [place] [address] Lakshmi Lambert, RN 505 [place] [address] 08/10/2025 1:30 PM EDT Medication Management [facility] MED & PEDS 505 [place] [address] Emeli Montalvo, PharmD 230 [place] [address] documented as of this encounter Visit Diagnoses Not on filedocumented in this encounter Care Teams Premix Concrete Batcher Relationship Specialty Start Date End Date Micheline Garcia MD 505 [place] [address] PCP - General Family Medicine 06/03/18 Emeli Montalvo PharmD 230 [place] [address] Pharmacist Internal Medicine 10/19/24 documented as of this encounter
--- OUTSIDE RECORDS SUMMARY | 2025-05-17 20:00 | XMS_ITS | Encounter Summary ---
Author Organization [email or web address] Address [address] [facility] 7t [place] [address] Care Team Providers Care Turpentine Distiller Name Role Phone Micheline Garcia MD Primary Care Provider Emeli Montalvo PharmD Unavailable [phone] Encounter Details Date Type Department Care Team (Latest Contact Info) Description 05/17/2025 Travel Social History Tobacco Use Types Packs/Day [...] Description 06/10/2025 1:30 PM EST Clinical Support [facility] MED & PEDS 505 [place] [address] Lakshmi Lambert, RN 505 [place] [address] 08/10/2025 1:30 PM EDT Medication Management [facility] MED & PEDS 505 [place] [address] Emeli Montalvo PharmD [address] [place] [address] documented as of this encounter Goals Goal Patient Goal Type Associated Problems Recent Progress Patient-Stated? Author Help patients manage their type 2 diabetes Care Plan Help patients manage their type 2 diabetes No Emeli Montalvo, PharmAshleigh Weekly blood pressure task Care Plan Weekly blood pressure task No Emeli Montalvo, PharmD Help patients manage their type 2 diabetes Care Plan Help patients manage their type 2 diabetes No Emeli Montalvo, PharmD Patient has chronic kidney disease Care Plan Patient has chronic kidney disease No Emeli Montalvo, PharmAshleigh Weekly blood pressure task Care Plan Weekly blood pressure task No Emeli Montalvo PharmAshleigh Patient has chronic kidney disease Care Plan Patient has chronic kidney disease No Emeli Montalvo PharmD Weekly blood pressure task Care Plan Weekly blood pressure task No Micheline Garcia MD Weekly blood pressure task Care Plan Weekly blood pressure task No Micheline Garcia MD Patient has chronic kidney disease Care Plan Patient has chronic kidney disease No Micheline Garcia MD Patient has chronic kidney disease Care Plan Patient has chronic kidney disease No Micheline Garcia MD Weekly blood pressure task Care Plan Weekly blood pressure task No Patricia Gamboa Weekly blood pressure task Care Plan Weekly blood pressure task No Patricia Gamboa Patient has chronic kidney disease Care Plan Patient has chronic kidney disease No Patricia Gamboa Patient has chronic kidney disease Care Plan Patient has chronic kidney disease No Patricia Gamboa Weekly blood pressure task Care Plan Weekly blood pressure task No Lakshmi Lambert RN Weekly blood pressure task Care Plan Weekly blood pressure task No Lakshmi Lambert RN Patient has chronic kidney disease Care Plan Patient has chronic kidney disease No Lakshmi Lambert RN Patient has chronic kidney disease Care Plan Patient has chronic kidney disease No Lakshmi Lambert RN Weekly blood pressure task Care Plan Weekly blood pressure task No Emeli Montalvo PharmD Weekly blood pressure task Care Plan Weekly blood pressure task No Emeli Montalvo PharmAshleigh Patient has chronic kidney disease Care Plan Patient has chronic kidney disease No Emeli Montalvo PharmAshleigh Patient has chronic kidney disease Care Plan Patient has chronic kidney disease No Emeli Montalvo PharmAshleigh Weekly blood pressure task Care Plan Weekly blood pressure task No Emeli Montalvo PharmAshleigh Weekly blood pressure task Care Plan Weekly blood pressure task No Cesar Montalvoa, PharmAshleigh Patient has chronic kidney disease Care Plan Patient has chronic kidney disease No Cesar Montalvoa, PharmD Patient has chronic kidney disease Care Plan Patient has chronic kidney disease No Emeli Montalvo PharmAshleigh documented as of this encounter Visit Diagnoses Not on filedocumented in this encounter Additional Health Concerns Active Problems Noted Date Diagnosed Date Help patients manage their type 2 diabetes 04/15 Weekly blood pressure task 04/15/2025 Help patients manage their type 2 diabetes 04/15 Patient has chronic kidney disease 04/15/2025 Weekly blood pressure task 04/15/2025 Patient has chronic kidney disease 04/15/2025 Weekly blood pressure task 04/15/2025 Weekly blood pressure task 04/15/2025 Patient has chronic kidney disease 04/15/2025 Patient has chronic kidney disease 04/15/2025 Weekly blood pressure task 05/03/2025 Weekly blood pressure task 05/03/2025 Patient has chronic kidney disease 05/03/2025 Patient has chronic kidney disease 05/03/2025 Weekly blood pressure task 05/03/2025 Weekly blood pressure task 05/03/2025 Patient has chronic kidney disease 05/03/2025 Patient has chronic kidney disease 05/03/2025 Weekly blood pressure task 05/17/2025 Weekly blood pressure task 05/17/2025 Patient has chronic kidney disease 05/17/2025 Patient has chronic kidney disease 05/17/2025 Weekly blood pressure task 05/17/2025 Weekly blood pressure task 05/17/2025 Patient has chronic kidney disease 05/17/2025 Patient has chronic kidney disease 05/17/2025 Assessment Noted Time PHQ-9 Depression Total Score: 11 025 11:27 AM EDT documented as of this encounter Care Teams Turpentine Distiller Relationship Specialty Start Date End Date Micheline Garcia MD [address] [place] [address] PCP - General Family Medicine 06/03/18 Emeli Montalvo PharmD [address] [place] [address] Pharmacist Internal Medicine 10/19/24 documented as of this encounter
--- OUTSIDE RECORDS SUMMARY | 2025-05-17 20:00 | XMS_ITS | Encounter Summary ---
Author Organization [employer] Address [address] [facility] 7t [place] [address] Care Team Providers Care Raw Shellfish Preparer Name Role Phone Micheline Garcia MD Primary Care Provider [phone] Emeli Montalvo PharmD Unavailable [phone] Reason for Visit * Reason Onset Date Comments Med Refill 04/29/2024 Encounter Details Date Type Department Care Team ([facility] st Contact Info) Description 04/29/2024 Telephone [facility] MEDICINE 230 [place] [address] Micheline Garcia MD 505 [place], [place] [phone] Med Refill Social History Tobacco Use Types [...] 12 hr tablet To be sent to: [facility] documented in this encounter Plan of Treatment Upcoming Encounters Date Type Department Care Team (Late st Contact Info) Description 06/10/2025 1:30 PM EST Clinical Support [facility] MED & PEDS [address] [place] [address] Lakshmi Lambert RN 505 [place] [address] 08/10/2025 1:30 PM EDT Medication Management [facility] MED & PEDS [address] [place] [address] Emeli Montalvo PharmD 230 [place] [address] documented as of this encounter Visit Diagnoses Not on filedocumented in this encounter Care Teams Raw Shellfish Preparer Relationship Specialty Start Date End Date Micheline Garcia MD 505 [place] [address] PCP - General Family Medicine 06/03/18 Emeli Montalvo PharmD 230 [place] [address] Pharmacist Internal Medicine 10/19/24 documented as of this encounter
--- OUTSIDE RECORDS SUMMARY | 2025-05-17 20:00 | XMS_ITS | Encounter Summary ---
Author Organization [employer] Address [address] [place] [address] 7 [place] [address] Care Team Providers Care Etl Lead Name Role Phone Micheline Garcia MD Primary Care Provider [phone] Emeli Montalvo PharmD Unavailable [phone] Encounter Details Date Type Department Care Team ([facility] Contact Info) Description 05/03/2022 Orders Only [facility] MEDICINE [address] [place], [place] [phone] Magda Becerra MD 505 [place], [place] [phone] Gastroesophageal reflux disease without esophagitis (Primary Dx); [...] Upcoming Encounters Date Type Department Care Team ([facility] Contact Info) Description 06/10/2025 1:30 PM EST Clinical Support [facility] MED & PEDS 505 [place], [place] [phone] Lakshmi Lambert, AJAY 505 [place], [place] [phone] 08/10/2025 1:30 PM EDT Medication Management [facility] MED & PEDS [address] [place] [address] Emeli Montalvo PharmD [address] [place] [address] documented as of this encounter Visit Diagnoses Diagnosis Gastroesophageal reflux disease without esophagitis- Primary Esophageal reflux Ingrown toenail Ingrowing nail documented in this encounter Care Teams Etl Lead Relationship Specialty Start Date End Date Micheline Garcia MD 505 [place] [address] PCP - General Family Medicine 06/03/18 Emeli Montalvo PharmD [address] [place] [address] Pharmacist Internal Medicine 10/19/24 documented as of this encounter
--- OUTSIDE RECORDS SUMMARY | 2025-05-17 20:00 | XMS_ITS | Encounter Summary ---
Author Organization [employer] Address [address] [facility] 7t [place] [address] Care Team Providers Care Terrapin Fisher Name Role Phone Micheline Garcia MD Primary Care Provider [phone] Emeli Montalvo PharmD Unavailable [phone] Reason for Visit * Reason Comments Med Refill Encounter Details Date Type Department Care Team ([facility] Contact Info) Description 12/27/2023 Refill [facility] MED & PEDS 505 [place], [place] [phone] Micheline Garcia MD 505 [place] [address] Chronic pain syndrome; Diabetic autonomic neuropathy associated [...] Description 06/10/2025 1:30 PM EST Clinical Support [facility] MED & PEDS 505 [place] [address] Lakshmi Lambert, RN 505 [place] [address] 08/10/2025 1:30 PM EDT Medication Management [facility] MED & PEDS 505 [place] [address] Emeli Montalvo, PharmD 230 [place] [address] documented as of this encounter Visit Diagnoses Diagnosis Chronic pain syndrome Diabetic autonomic neuropathy associated with type 2 diabetes mellitus (HCC) Type II or unspecified type diabetes mellitus with neurological manifestations, not stated as uncontrolled documented in this encounter Care Teams Terrapin Fisher Relationship Specialty Start Date End Date Micheline Garcia MD 505 [place], [place] [phone] PCP - General Family Medicine 06/03/18 Emeli Montalvo, PharmD 230 [place], [place] [phone] Pharmacist Internal Medicine 10/19/24 documented as of this encounter
--- OUTSIDE RECORDS SUMMARY | 2025-05-17 20:00 | XMS_ITS | Encounter Summary ---
Author Organization [employer] Address [address] [facility] 7 [place] [address] Care Team Providers Care Operational Intelligence Analyst Name Role Phone Micheline Garcia MD Primary Care Provider [phone] Emeli Montalvo PharmD Unavailable [phone] Reason for Visit * Reason Onset Date Comments Appointment Request 07/11/2022 Encounter Details Date Type Department Care Team (Late Contact Info) Description 07/11/2022 Telephone [facility] MEDICINE 230 [place] [address] Micheline Garcia MD [address] [place] [address] Appointment Request Social History Tobacco Use Types [...] requesting to r/s appt on 07/11/21 ( [employer] TE[employer]ICIAN [place] ) Please contact pt at [phone] documented in this encounter Plan of Treatment Upcoming Encounters Date Type Department Care Team (Late Contact Info) Description 06/10/2025 1:30 PM EST Clinical Support [facility] MED & PEDS [address] [place] [address] Lakshmi Lambert, RN 505 [place] [address] 08/10/2025 1:30 PM EDT Medication Management [facility] MED & PEDS [address] [place] [address] Emeli Montalvo PharmD 230 [place] [address] documented as of this encounter Visit Diagnoses Not on filedocumented in this encounter Care Teams Operational Intelligence Analyst Relationship Specialty Start Date End Date Micheline Garcia MD 505 [place] [address] PCP - General Family Medicine 06/03/18 Emeli Montalvo PharmD 230 [place] [address] Pharmacist Internal Medicine 10/19/24 documented as of this encounter
--- OUTSIDE RECORDS SUMMARY | 2025-05-17 20:00 | XMS_ITS | Encounter Summary ---
Author Organization [employer] Address [address] [facility] 7t [place] [address] Care Team Providers Care Artillery Meteorological Man Name Role Phone Micheline Garcia MD Primary Care Provider [phone] Emeli Montalvo PharmD Unavailable [phone] Reason for Visit * Reason Onset Date Comments Med Refill 12/09/2023 Encounter Details Date Type Department Care Team ([facility] st Contact Info) Description 12/09/2023 Telephone [facility] MEDICINE 230 [place] [address] Micheline Garcia MD 505 [place], [place] [phone] Med Refill Social History Tobacco Use Types [...] 12 hr tablet To be sent to: [facility] documented in this encounter Plan of Treatment Upcoming Encounters Date Type Department Care Team (Late st Contact Info) Description 06/10/2025 1:30 PM EST Clinical Support [facility] MED & PEDS [address] [place] [address] Lakshmi Lambert, RN 505 [place] [address] 08/10/2025 1:30 PM EDT Medication Management [facility] MED & PEDS [address] [place] [address] Emeli Montalvo PharmD 230 [place] [address] documented as of this encounter Visit Diagnoses Not on filedocumented in this encounter Care Teams Artillery Meteorological Man Relationship Specialty Start Date End Date Micheline Garcia MD 505 [place] [address] PCP - General Family Medicine 06/03/18 Emeli Montalvo PharmD 230 [place], [place] [phone] Pharmacist Internal Medicine 10/19/24 documented as of this encounter
--- OUTSIDE RECORDS SUMMARY | 2025-05-17 20:00 | XMS_ITS | Encounter Summary ---
Author Organization [employer] Address [address] [facility] [address] 7t [place] [address] Care Team Providers Care Respiratory Therapist Name Role Phone Micheline Garcia MD Primary Care Provider [phone] Emeli Montalvo PharmD Unavailable [phone] Encounter Details Date Type Department Care Team (Late st Contact Info) Description 05/17/2025 Telephone [facility] MED & PEDS [address] [place], [place] [phone] Emeli Montalvo, PharmD 230 [place] [address] Social History Tobacco Use Types Packs/Day Years [...] Telephone Encounter - Emeli Montalvo PharmD - 05/17/2025 4:11 PM EST During CDTM visit today patient reports continued hoarseness as well as non- productive cough which results in urinary incontinence. Denies increased sputum, fever, other symptoms. Reports being sicka couple weeks ago and feels the antibiotics given were not long enough (patient was prescribed a Z-geovanny as well as prednisone on 04/15). Denies use of Breo. Reports using albuterol occasionally. Advised patient of WIC today or offered sick visit with PCP in ~ 2 weeks. Patient declined both. Strongly advised patient to use Breo twice daily as prescribed. documented in this encounter Plan of Treatment Upcoming Encounters Date Type Department Care Team (Late st Contact Info) Description 06/10/2025 1:30 PM EST Clinical Support [facility] MED & PEDS [address] [place] [address] Lakshmi Lambert, RN [address] [place] 08/10/2025 1:30 PM EDT Medication Management [facility] MED & PEDS 505 [place] [address] Emeli Montalvo PharmD 230 [place] [address] documented as of this encounter Goals Goal Patient Goal Type Associated Problems Recent Progress Patient-Stated? Author Help patients manage their type 2 diabetes Care Plan Help patients manage their type 2 diabetes No Emeli Montalvo PharmD Weekly blood pressure task Care Plan Weekly blood pressure task No Emeli Montalvo PharmD Help patients manage their type 2 diabetes Care Plan Help patients manage their type 2 diabetes No Emeli Montalvo PharmD Patient has chronic kidney disease Care [...] Plan Weekly blood pressure task No Lakshmi Lambert, AJAY Weekly blood pressure task Care Plan Weekly blood pressure task No Lakshmi Lambert, AJAY Patient has chronic kidney disease Care Plan Patient has chronic kidney disease No Lakshmi Lambert, AJAY Patient has chronic kidney disease Care Plan Patient has chronic kidney disease No Lakshmi Lambert RN Weekly blood pressure task Care Plan Weekly blood pressure task No Emeli Montalvo PharmD Weekly blood pressure task Care Plan Weekly blood pressure task No Emeli Montalvo PharmD Patient has chronic kidney disease Care Plan Patient has chronic kidney disease No Emeli Montalvo PharmD Patient has chronic kidney disease Care Plan Patient has chronic kidney disease No Emeli Montalvo PharmD Weekly blood pressure task Care Plan Weekly blood pressure task No Emeli Montalvo PharmD Weekly blood pressure task Care Plan Weekly blood pressure task No Emeli Montalvo PharmD Patient has chronic kidney disease Care Plan Patient has chronic kidney disease No Emeli Montalvo PharmD Patient has chronic kidney disease Care Plan Patient has chronic kidney disease No Emeli Montalvo PharmD documented as of this encounter Visit Diagnoses [...] Noted Time PHQ-9 Depression Total Score: 11 09/16/2 025 11:27 AM EDT documented as of this encounter Care Teams Respiratory Therapist Relationship Specialty Start Date End Date Micheline Garcia MD 505 [place] [address] PCP - General Family Medicine 06/03/18 Emeli Montalvo PharmD 230 [place] [address] Pharmacist Internal Medicine 10/19/24 documented as of this encounter
--- OUTSIDE RECORDS SUMMARY | 2025-05-17 20:00 | XMS_ITS | Encounter Summary ---
Author Organization [employer] Address [address] [facility] [address] 7[address] [place] [address] Care Team Providers Care Oracle Database Manager Name Role Phone Micheline Garcia MD Primary Care Provider [phone] Emeli Montalvo PharmD Unavailable [phone] Encounter Details Date Type Department Care Team ([facility] st Contact Info) Description 05/17/2025 Orders Only GENERIC EXTERNAL DATA DEPARTMENT Provider, Generic External Data Social History Tobacco Use Types Packs/Day Years [...] Description 06/10/2025 1:30 PM EST Clinical Support [facility] MED & PEDS 505 [place] [address] Lakshmi Lambert, AJAY [address] [place] [address] 08/10/2025 1:30 PM EDT Medication Management [facility] MED & PEDS 505 [place] [address] Emeli Montalvo PharmD [address] [place] [address] documented as of this encounter Goals Goal Patient Goal Type Associated Problems Recent Progress Patient-Stated? Author Help patients manage their type 2 diabetes Care Plan Help patients manage their type 2 diabetes No Emeli Montalvo PharmD Weekly blood pressure task Care Plan Weekly blood pressure task No Emeli Montalvo, PharmAshleigh Help patients manage their type 2 diabetes Care Plan Help patients manage their type 2 diabetes No Emeli Montalvo, PharmAshleigh Patient has chronic kidney disease Care Plan Patient has chronic kidney disease No MontalvoEmeli mary PharmD Weekly blood pressure task Care Plan [...] Montalvo PharmD documented as of this encounter Procedures Procedure Name Priority Date/Time Associated Diagnosis Comments HEMOGLOBIN A1C Routine 05/17/2025 1:49 PM EST documented in this encounter Results * (ABNORMAL) Hemoglobin A1c (05/17/2025 1:49 PM EST) Hemoglobin A1c 8.0(H) <6.0 % [facility] Comment:Hemoglobin A1C Refer ence Range Adults: 4.8 - 6.0 % Non diabetic: < 6.0 % Goal: < 7.0 %Additional Action Suggested: > 8.0 %Note: Hemoglobin A1c results are invalid for patients with abnormal amounts of HbF. Blood transfusions may impact the HbA1c concentration in the patient sample. Estimated Average Glucose 183 mg/dL [facility] Comment:eAG = Estimated ave rage glucose which is %A1C expressed asaverage glucose, using the formula of the T1U-VnxzekaSvrmjlo Glucose study (ADAG), Diabetes Care, Vol.31,#8,Jan. 2007 05/17/2025 1:49 PM EST 05/17/2025 2:26 PM EST us Generic External Data Provider LAB BLOOD ORDERAB LES Final Result Performing Organization Address City/State/[facility] Co de Phone Number [facility] [address] [place] [phone] documented in this encounter Visit Diagnoses Not [...] Noted Time PHQ-9 Depression Total Score: 11 09/16/ 025 11:27 AM EDT documented as of this encounter Care Teams Oracle Database Manager Relationship Specialty Start Date End Date Micheline Garcia MD [address] [place] [address] PCP - General Family Medicine 06/03/18 Emeli Montalvo PharmD [address] [place] [address] Pharmacist Internal Medicine 10/19/24 documented as of this encounter
--- OUTSIDE RECORDS SUMMARY | 2025-05-17 20:00 | XMS_ITS | Encounter Summary ---
Author Organization [employer] Address [address] [facility] 7 [place] [address] Care Team Providers Care Cigar Packer And Grader Name Role Phone Micheline Garcia MD Primary Care Provider [phone] Emeli Montalvo PharmD Unavailable [phone] Reason for Visit * Reason Onset Date Comments Med Refill 05/03/2025 Encounter Details Date Type Department Care Team ([facility] st Contact Info) Description 05/03/2025 Telephone [facility] MEDICINE [address] [place] [address] Micheline Garcia MD [address] [place] [phone] Med Refill Social History Tobacco Use Types [...] encounter Miscellaneous Notes * Telephone Encounter - Patricia Gamboa - 05/03/2025 9:13 AM EST Tc from pt requesting a med refill : morphine CR (MS Contin) 60 MG [address] Garcia documented in this encounter Plan of Treatment Upcoming Encounters Date Type Department Care Team ([facility] st Contact Info) Description 06/10/2025 1:30 PM EST Clinical Support [facility] [address] [place] [address] Lakshmi Lambert, RN [address] [place] [address] 08/10/2025 1:30 PM EDT Medication Management [facility] [address] [place] [address] Emeli Montalvo PharmD [address] [place] [address] documented as of this encounter Goals Goal Patient Goal Type Associated Problems Recent Progress Patient-Stated? Author Help patients manage their type 2 diabetes Care Plan Help patients manage their type 2 diabetes No Emeli Montalvo PharmD Weekly blood pressure task Care Plan Weekly blood pressure task No Emeli Montalvo PharmAshleigh Help patients manage their type 2 diabetes Care Plan Help patients manage their type 2 diabetes No Emeli Montalvo PharmAshleigh Patient has chronic [...] chronic kidney disease No Lakshmi Lambert RN documented as of this encounter Visit Diagnoses [...] 05/03/2025 Patient has chronic kidney disease 05/03/2025 Assessment Noted Time PHQ-9 Depression Total Score: 11 025 11:27 AM EDT documented as of this encounter Care Teams Cigar Packer And Grader Relationship Specialty Start Date End Date Micheline Garcia MD [address] [place] [address] PCP - General Family Medicine 06/03/18 Emeli Montalvo PharmD [address] [place] [address] Pharmacist Internal Medicine 10/19/24 documented as of this encounter
--- OUTSIDE RECORDS SUMMARY | 2025-05-17 20:00 | XMS_ITS | Clinical Summary ---
Author Organization [employer] Address [address] [facility] 7t [place] [address] Care Team Providers Care Tooth Clerk Name Role Phone Micheline Garcia MD Primary Care Provider [phone] Emeli Montalvo PharmD Unavailable [phone] Allergies Active Allergy Reactions Criticality Noted Date Comments Barium Sulfate 11/15/2022 Other reaction(s): unknown Codeine 11/15/2022 Diazepam 11/15/2022 Egg Protein (Egg White) 05/17/2017 Egg Protein-Containing Drug Products 05/17/2017 Other reaction(s): diarrhea Germanium Diarrhea 11/15/2022 Naproxen Angioedema,Hives 05/23/2017 Penicillin G 03/07/2023 Penicillins 12/22/2012 Other reaction(s): Unknown Medications naloxone (Narcan) 4 mg/0.1 mL nasal spray Administer 1 spray (4 mg) into affected nostril(s) if needed for opioid reversal. 2 each 1 07/30/19 25 Active empagliflozin (Jardiance) 25 MG Take 1 tablet (25 mg) by mouth Once per day. 90 tablet 3 09/17/19 25 2025 Active fluticasone (Flonase) 50 MCG/ACT nasal spray Administer 1-2 sprays into each nostril Once per day. 16 g 11 09/17/19 25 2025 Active lisinopril 2.5 MG tablet Take 1 tablet (2.5 mg) by mouth Once per day. 90 tablet 3 5 11:42 AM EST 10/20/19 25 Active Blood Pressure kit Test blood pressure 3 times per week 1 kit 10/20/19 25 Active albuterol (Proventil HFA) 108 (90 Base) MCG/ACT inhaler Inhale 2 puffs every 6 (six) hours if needed for wheezing. 18 g 2 11/17/19 25 Active Fluticasone Furoate-Vilant mindy (Breo Ellipta) 50-25 MCG/ACT aerosol powder Inhale 1 puff 2 times daily. 60 each 11/17/19 25 2025 Active EPINEPHrine (Epipen) 0.3 MG/0.3ML injection syringe Inject 0.3mg once as directed and call 911 2 each 11/17/19 25 Active insulin pen needle (Pentips) 32G x 4 mm misc Use once daily with insulin 100 each 3 12/24/19 25 2025 Active bacitracin-fernando ymyxin b (Polysporin) ointment Apply topically 2 times daily. Apply to affected area daily 30 g 12/25/19 25 Active acetaminophen (Tylenol 8 Hour) 650 MG ER tablet TAKE ONE TABLET BY MOUTH THREE TIMES DAILY NEEDED FOR PAIN 90 tablet 5 02/20/20 25 Active Continuous Glucose Sensor (FreeStyle Charlee 3 Plus Sensor) miscIndication s:Poorly controlled diabetes mellitus (HCC) 1 each every 15 days. 2 each 5 2:20 PM EST 03/10/20 25 Active glucose blood (FreeStyle Precision Trever Test) test stripIndicatio ns:Poorly controlled diabetes mellitus (HCC) Test blood sugar up to 3 times daily as directed 100 each 11 03/10/20 25 Active omeprazole (PriLOSEC) [address] capsule TAKE ONE CAPSULE EVERY DAY 30 capsule 3 5 11:42 AM EST 03/29/20 25 Active loratadine (Claritin) 10 MG tablet Take 1 tablet (10 mg) by mouth Once per day. 30 tablet 5 5 2:20 PM EST 04/15/20 25 2025 Active albuterol (2.5 MG/3ML) 0.083% nebulizer solutionIndica tions:Chronic obstructive pulmonary disease with acute lower respiratory infection (CMS/HCC) (HCC) Take 3 mL (2.5 mg) by nebulization every 6 (six) hours if needed for wheezing. 90 mL 1 04/15/20 25 Active ketoconazole (NIZOral) 2 % shampoo Apply topically 2 (two) times a week. 120 mL 3 5 2:20 PM EST 04/15/20 Active predniSONE (Deltasone) 20 MG tablet Take 2 tabs orally daily for 4 more days 8 tablet 5 2:20 PM EST 04/15/20 Active SUMAtriptan (Imitrex) 25 MG tablet TAKE ONE TABLET NEEDED FOR MIGRAINE 9 tablet 3 04/20/20 25 Active amitriptyline (Elavil) 150 MG tabletIndicati ons:Schizophre niform disorder (CMS/HCC) (HCC) TAKE ONE TABLET EVERY NIGHT AT BEDTIME 30 tablet 1 5 11:42 AM EST 05/03/20 Active gabapentin (Neurontin) 400 MG capsule TAKE ONE CAPSULE THREE TIMES DAILY 90 capsule 1 05/03/20 Active morphine CR (MS Contin) 60 MG 12 hr tabletIndicati ons:Chronic pain syndrome Take 1 tablet (60 mg) by mouth 2 times daily. Do not crush, chew, or split. 60 tablet 5 11:42 AM EST 05/03/20 25 2025 Active rosuvastatin (Crestor) 10 MG tabletIndicati ons:Type 2 diabetes mellitus without complication, with long-term current use of insulin ([facility]) Take 1 tablet (10 mg) by mouth Once per day. 30 tablet 2 5 2:05 PM EST 05/17/20 Active Insulin Degludec FlexTouch 100 UNIT/ML solution pen-injectorIn dications:Type 2 diabetes mellitus without complication, with long-term current use of insulin ([facility]) Inject 15 Units under the skin Once per day. 15 mL 1 05/17/20 25 Active SUMAtriptan (Imitrex) 25 MG tablet TAKE ONE TABLET NEEDED migraine 9 tablet 3 11/21/19 25 2024 Discontinued amitriptyline (Elavil) 150 MG tabletIndicati ons:Schizophre niform disorder (CMS/HCC) (HCC) Take 1 tablet (150 mg) by mouth at bedtime. 30 tablet 1 03/01/20 25 2024 Discontinued gabapentin (Neurontin) 400 MG capsule TAKE ONE CAPSULE THREE TIMES DAILY 90 capsule 1 03/01/20 25 2024 Discontinued Dulaglutide (Trulicity) 3 MG/0.5ML solution auto-injectorI ndications:Poo rly controlled diabetes mellitus (HCC) Inject 3 mg under the skin 1 (one) time per week. 2 mL 3 03/09/20 25 2024 Discontinued(S brittani effects) morphine CR (MS Contin) 60 MG 12 hr tabletIndicati ons:Chronic pain syndrome Take 1 tablet (60 mg) by mouth 2 times daily. Do not crush, chew, or split. 60 tablet 03/31/20 25 2024 Discontinued(R eorder (will not trigger notification to Pharmacy)) Insulin Degludec FlexTouch 100 UNIT/ML solution pen-injectorIn dications:Type 2 diabetes mellitus without complication, with long-term current use of insulin ([facility]) Inject 12 Units under the skin Once per day. 15 mL 1 5 2:20 PM EST 04/15/20 25 2024 Discontinued(R eorder (will not trigger notification to Pharmacy)) azithromycin (Zithromax) 250 MG tablet Take 2 tablets (500 mg) by mouth Once per day for 1 day, THEN 1 tablet (250 mg) Once per day for 4 days. 6 tablet 5 2:20 PM EST 04/15/202024 Hospital, Clinic, or Other Facility Administered Medication Ordered Dose Route Frequency Start Date End Date Status predniSONE (Deltasone) tablet 40 mgIndications:COPD with acute exacerbation (CMS/HCC) (HCC) 40 mg PO Daily 04/15/2025 Active Active Problems Problem Noted Date Diagnosed Date [...] Date Diagnosed Date Resolved Date Atrial fibrillation (CMS/HCC) 05/04/2022 03/12/2023 Encounters Date Type Department Care Team Description 05/17/2025 Telephone [facility] [address] [place] [address] Emeli Montalvo, PharmD 05/17/2025 Orders Only GENERIC EXTERNAL DATA DEPARTMENT Provider, Generic External Data 05/17/2025 Travel 05/03/2025 Telephone [facility] MEDICINE [address] [place] [phone] Micheline Garcia MD Med Refill 04/30/2025 Refill [facility] [address] [place] [address] Micheline Garcia MD Schizophreniform disorder (CMS/HCC) (HCC); Chronic pain syndrome 04/20/2025 Refill [facility] [address] [place] [address] Micheline Garcia MD 04/15/2025 1:30 PM EST Office Visit [facility] [address] [place] [address] Micheline Garcia MD COPD with acute exacerbation (CMS/HCC) (HCC) (Primary Dx); Chronic obstructive pulmonary disease with acute lower respiratory infection (CMS/HCC) (HCC); Dietary counseling; Exercise counseling; Type 2 diabetes mellitus with other circulatory complication, unspecified whether shelter insulin use (HCC) 04/15/2025 Travel 04/15/2025 Telephone [facility] [address] [place] [address] Emeli Montalvo, PharmD 04/08/2025 Patient Outreach [facility] MEDICINE [address] [place] [phone] Micheline Garcia MD Pre-visit Planning ([facility] screening completed on 09/16/24) 03/31/2025 Refill [facility] [address] [place] [address] Lakshmi Lambert, face painter pain syndrome 03/31/2025 Telephone [facility] MEDICINE [address] [place] [address] Micheline Garcia MD Med Refill 03/28/2025 Refill [facility] PEDS [address] [place] [address] Micheline Garcia MD 03/23/2025 2:30 PM EDT Clinical Support [facility] [address] [place] [address] Lakshmi Lambert RN Chronic pain syndrome (Primary Dx) 03/23/2025 Telephone [facility] [address] [place] [address] Emeli Montalvo, PharmD 03/23/2025 Travel 03/10/2025 Refill [facility] [address] [place] [address] Emeli Montalvo, PharmD Poorly controlled diabetes mellitus (HCC) 03/09/2025 Travel 02/27/2025 Refill [facility] [address] [place] [address] Elyssa Lucas MD 02/26/2025 Telephone [facility] [address] [place] [address] Micheline Garcia MD 02/25/2025 Refill [facility] [address] [place] [address] Micheline Garcia MD Chronic pain syndrome 02/19/2025 Refill [facility] [address] [place] [address] Micheline Garcia MD 02/18/2025 Telephone [facility] MEDICINE [address] [place] [address] Micheline Garcia MD No Show 02/17/2025 Telephone [facility] [address] [place] [address] Micheline Garcia MD Chart Prep from Last 3 Months Immunizations Immunization Administration Dates Next Due Hep B, adult 05/08/2011 Tdap 04/08/2012 Social History Tobacco Use Types Packs/Day Years Used Date Smoking Tobacco: Every Day Cigarettes Passive Smoke Exposure: Current Smokeless Tobacco: Never Tobacco Cessation:Ready to Q uit: No; Counseling Given: Yes Alcohol Use Standard Drinks/Week Comments Not Currently [...] Sign Reading Time Taken Comments Blood Pressure 118/60 04/15/2025 1:14 PM EST Pulse 92 04/15/2025 1:14 PM EST Temperature 36.2 C (97.2 F) 04/15/2025 1:14 PM EST Respiratory Rate 24 04/15/2025 1:14 PM EST Oxygen Saturation 96% 04/15/2025 1:14 PM EST Inhaled Oxygen Concentration - - Weight 86.6 kg (191 lb) 04/15/2025 1:14 PM EST Height 167.6 cm (5' 6 ) 12/24/2024 1:21 PM EDT Body Mass Index 30.83 12/24/2024 1:21 PM EDT Plan of Treatment Upcoming Encounters Date Type Department Care Team (Late st Contact Info) Description 06/10/2025 1:30 PM EST Clinical Support [facility] [address] [place] [address] Lakshmi Lambert, RN [address] [place] [address] 08/10/2025 1:30 PM EDT Medication Management [facility] [address] [place] [address] Emeli Montalvo, PharmD [address] [place] [address] Health Maintenance Due Date Last Done Comments CT Colonography 1962 FIT DNA/Cologuard 1962 FIT 1962 FOBT 1962 HIV Screening 1962 Sigmoidoscopy 1962 Diabetes: Foot Exam 1972 Eye Exam 1972 Hepatitis C Screening 1980 Pneumococcal Vaccine: 50+ Years (1 of 2 - PCV) 1981 HPV/Cotest 1992 Hepatitis B Vaccines (2 of 3 - 19+ 3-dose series) 06/05/2011 05/08/2011 RSV Patients and Patients Aged 60 years or older (1 - Risk 50-74 years 1-dose series) 2012 Zoster Vaccines (1 of 2) 2012 Cervical Cancer Screening 10/08/2016 Pap Smear 10/08/2016 10/08/2013 Colonoscopy 11/06/2017 11/06/2012 Colorectal Cancer Screening 11/06/2017 DTaP/Tdap/Td Vaccines (2 - Td or Tdap) 04/08/2022 04/08/2012 Mammogram 12/19/2023 12/18/2021 COVID-19 Vaccine ( season) 2025 Influenza Vaccine (#1) 2025 Depression Monitoring 03/18/2025 09/16/2024, 025 Diabetes: Hemoglobin A1C 08/15/2025 025, 03/09/2025, 12/21/2024, Additional history exists Alcohol/Substance Use Screening 09/16/2025 09/16/2024 Diabetes: Urine Protein Screening 09/16/2025 09/16/2024, 09/30/2020, 09/30/2020 Disability Screening 09/16/2025 09/16/2024 Lipid Panel 09/16/2025 09/16/2024, 09/30/2020 SDOH Screening 09/16/2025 09/16/2024 Tobacco Screening 05/17/2026 05/17/2025 HIB Vaccines Aged Out No longer eligi [...] patient's age to complete this topic Meningococcal B Vaccine Aged Out No l onger eligible based on patient's age to complete this topic Meningococcal Vaccine Aged Out No nicol jenna eligible based on patient's age to complete this topic RSV under 20 months Aged Out No longe r eligible based on patient's age to complete this topic Rotavirus Vaccines Aged Out No longer eligible based on patient's age to complete this topic Goals Goal Patient Goal Type Associated Problems Recent Progress Patient-Stated? Author Help patients manage their type 2 diabetes Care Plan Help patients manage their type 2 diabetes No Emeli Montalvo, PharmAshleigh Weekly blood pressure task Care Plan Weekly blood pressure task No Emeli Montalvo, PharmAshleigh Help patients manage their type 2 diabetes Care Plan Help patients manage their type 2 diabetes No Emeli Montlavo PharmD Patient has chronic kidney disease Care [...] chronic kidney disease No Emeli Montalvo, PharmAshleigh Patient has chronic kidney disease Care Plan Patient has chronic kidney disease No Emeli Montalvo PharmD Procedures Procedure Name Priority Date/Time Associated Diagnosis Comments HEMOGLOBIN A1C Routine 05/17/2025 1:49 PM EST POCT JOSE ROBERTO-14 URINE DRUG SCREEN Routine 03/23/2025 2:18 PM EDT Chronic pain syndrome POCT GLYCATED HEMOGLOBIN, TOTAL Routine 03/09/2025 1:27 PM EDT Poorly controlled diabetes mellitus (HCC) ALBUMIN, RANDOM URINE W/CREATININE Routine 09/16/2024 11:33 AM EDT Chronic obstructive pulmonary disease, unspecified COPD type (CMS/HCC) Osteopenia, unspecified location Poorly controlled diabetes mellitus (CMS/HCC) Schizophreniform disorder (CMS/HCC) Long-term current use of opiate analgesic Type 2 diabetes mellitus without complication, without long-term current use of insulin (CMS/HCC) LIPID PANEL, STANDARD Routine 09/16/2024 11:28 AM EDT Chronic obstructive pulmonary disease, unspecified COPD type (CMS/HCC) Osteopenia, unspecified location Poorly controlled diabetes mellitus (CMS/HCC) Schizophreniform disorder (CMS/HCC) Long-term current use of opiate analgesic Type 2 diabetes mellitus without complication, without long-term current use of insulin (CMS/HCC) MAMMOGRAPHY Routine 12/18/2021 PAP/HPV Routine 10/08/2013 COLONOSCOPY Routine 11/06/2012 from Last 3 Months or Most Recently Relevant to Health Maintenance Results * (ABNORMAL) Hemoglobin A1c (05/17/2025 1:49 PM EST) Hemoglobin A1c 8.0(H) <6.0 % [facility] Comment:Hemoglobin A1C Refer ence Range Adults: 4.8 - 6.0 % Non diabetic: < 6.0 % Goal: < 7.0 %Additional Action Suggested: > 8.0 %Note: Hemoglobin A1c results are invalid for patients with abnormal amounts of HbF. Blood transfusions may impact the HbA1c concentration in the patient sample. Estimated Average Glucose 183 mg/dL [facility] Comment:eAG = Estimated ave rage glucose which is %A1C expressed asaverage glucose, using the formula of the [id number] Glucose study (ADAG), Diabetes Care, Vol.31,#8,Jan. 2007 05/17/2025 1:49 PM EST 05/17/2025 2:26 PM EST us Generic External Data Provider LAB BLOOD ORDERAB LES Final Result Performing Organization Address City/State/[facility] Co de Phone Number [facility] [address] [place] [phone] * (ABNORMAL) POCT JOSE ROBERTO-14 Urine Drug Screen (03/23/2025 2:18 PM EDT) THC Negative Negative Cocaine Screen, Urine Negative Negative Opiate Screen, Urine Positive(A) Negative Comment:Rx Methamphetamine Screen Urine Negative Negative Amphetamine Screen, Urine Negative Negative Benzodiazepines Screen, Urine Negative Negative Barbiturate Screen, Urine Negative Negative Methadone Screen, Urine Negative Negative Buprenophine Screen, Urine Negative Negative TCA, Urine Positive(A) Negative Comment:Rx MDMA Urine Negative Negative ng/mL Oxycodone Screen, Urine Negative Negative Phencyclidine (PCP), Urine Negative Negative Propoxyphene, Urine Negative Negative Fentanyl, Urine Negative Negative Urine Urine specimen obtained by clean catch procedure / Unknown 03/23/2025 2:18 PM EDT Narrative Lakshmi Lambert RN - 03/23/2025 2:18 PM EDT . Internal Pass Control Lot# [id number] Exp: 04-02-26 us Micheline Garcia MD POINT OF CARE TEST ENTER/EDIT ORDERABLES Final Result * (ABNORMAL) POCT A1c (03/09/2025 1:27 PM EDT) Hemoglobin A1C 7.6(A) 4.0 - 5.7 % QC Media Lot # [id number] Lot# Expiration Date [id number] Blood 03/09/2025 1:27 PM EDT Micheline Garcia MD POINT OF CARE TEST ENTER/EDIT ORDERABLES Final Result * (ABNORMAL) Albumin, Random Urine W/Creatinine (09/16/2024 11:33 AM EDT) Creatinine, Urine 25.49 mg/dL [facility] Microalbumin Urine 15.0 mg/L [facility] Microalbum Creatinine Ratio Ur 58.8(H) <30 ug/mg cr [facility] Comment:Albumin/Creatinine R atio Reference Ranges: Normal: < 30 ug/mg creatinine Microalbuminuria: 30 - 300 ug/mg creatinineClinical Albuminuria: > 300 ug/mg creatinine Urine (Urine, Random) 09/16/2024 11:33 AM EDT 09/16/2024 2:32 PM EDT Micheline Garcia MD LAB URINE ORDERABLES Final Re sult Performing Organization Address City/State/[facility] Co de Phone Number [facility] [address] [place] [phone] * (ABNORMAL) Lipid Panel, Standard (09/16/2024 11:28 AM EDT) Triglycerides 163(H) <150 mg/dL [facility] Comment:Desirable Triglyceri de: less than 150 mg/dLBorderline High Triglyceride 150-199 mg/dLHigh Triglyceride: 200-499 mg/dLVery High Triglyceride: greater than or equal to 5OO mg/dL Cholesterol 149 <200 mg/dL [facility] Comment:Desirable Cholestero l: less than 200 mg/dLBorderline High Cholesterol: 200-239 mg/dLHigh Cholesterol: greater than 239 mg/dL LDL Cholesterol Calculated 76 <100 mg/dL [facility] Comment:Desirable LDL: less than 100 mg/dLNear Optimal/Above Optimal LDL: 110- 129 mg/dLBorderline High LDL: 130-159 mg/dLHigh LDL: 160-189 mg/dLVery High LDL: greater than or equal to 190 mg/dL HDL Cholesterol 41 >40 mg/dL [facility] Comment:Desirable HDL: great er than 40 mg/dL Note: This HDL assay may give artificially low results in patients with liver disease. Blood Venous blood specimen / Unknown 09/16/2024 11:28 AM EDT 09/16/2024 2:18 PM EDT Micheline Garcia MD LAB BLOOD ORDERABLES Final Re sult [facility] [address] [place] [phone] * Mammography (12/18/2021) Mammogram performed Anatomical Region Laterality Modality Other Historical Provider HEALTH MAINTENANCE Final Result * Pap Smear (10/08/2013) Pap smear performed Historical Provider HEALTH MAINTENANCE Final Result * Colonoscopy (11/06/2012) Colonoscopy Normal Normal Narrative Dyan Dwyer - 11/06/2012 Recommended 5 year follow up Historical Provider HEALTH MAINTENANCE Final Result from Last 3 Months or Most Recently Relevant to Health Maintenance Additional Health Concerns Active Problems Noted Date [...] 05/17/2025 Patient has chronic kidney disease 05/17/2025 Insurance MEDICARE MEDICARE [facility] Care Teams Tooth Clerk Relationship Specialty Start Date End Date Micheline Garcia MD [address] [place] [phone] PCP - General Family Medicine 06/03/18 Emeli Montalvo, RaymundoD [address] [place] [phone] Pharmacist Internal Medicine 10/19/24
--- OUTSIDE RECORDS SUMMARY | 2025-05-17 20:00 | XMS_ITS | Encounter Summary ---
Author Organization [employer] Address [address] [facility] [address] [place] [address] Care Team Providers Care Nurse Chemical Dependency Name Role Phone Micheline Garcia MD Primary Care Provider [phone] Emeli Montalvo PharmD Unavailable [phone] Reason for Visit * Reason Comments Med Refill Encounter Details Date Type Department Care Team ([facility] [address] Contact Info) Description 11/26/2023 Refill [facility] [address] [place], [place] [phone] Micheline Garcia MD [address] [place] [address] Gastroesophageal reflux disease without esophagitis Social History [...] t he electric, gas, oil or water [employer] threatened to shut off services in your [...] Description 06/10/2025 1:30 PM EST Clinical Support [facility] [address] [place] [address] Lakshmi Lambert, AJAY [address] [place] [address] 08/10/2025 1:30 PM EDT Medication Management [facility] [address] [place] [address] Emeli Montalvo PharmD [address] [place] [address] documented as of this encounter Visit Diagnoses Diagnosis Gastroesophageal reflux disease without esophagitis Esophageal reflux documented in this encounter Care Teams Nurse Chemical Dependency Relationship Specialty Start Date End Date Micheline Garcia MD [address] [place] [address] PCP - General Family Medicine 06/03/18 Emeli Montalvo, PharmD [address] [place] [address] Pharmacist Internal Medicine 10/19/24 documented as of this encounter
--- OUTSIDE RECORDS SUMMARY | 2025-05-17 20:01 | XMS_ITS | Encounter Summary ---
Author Organization [employer] Address 75 [facility] 7 [place] [address] Care Team Providers Care System Support Analyst Name Role Phone Micheline Garcia MD Primary Care Provider [phone] Emeli Montalvo PharmD Unavailable [phone] Reason for Visit * Reason Onset Date Comments Med Refill 03/31/2025 Encounter Details Date Type Department Care Team ([facility] Contact Info) Description 03/31/2025 Telephone [facility] MEDICINE [address] [place] [address] Micheline Garcia MD [address] [place] [phone] Med Refill Social History Tobacco Use Types [...] encounter Miscellaneous Notes * Telephone Encounter - Mi Maier - 03/31/2025 2:10 PM EDT TC from pt requesting medication refill. Medications needing refill : - morphine CR (MS Contin) 60 MG 12 hr tablet To be sent to: - [facility] - [place] - [address] documented in this encounter Plan of Treatment Upcoming Encounters Date Type Department Care Team ([facility] st Contact Info) Description 06/10/2025 1:30 PM EST Clinical Support [facility] MED & PEDS [address] [place] [address] Lakshmi Lambert, RN [address] [place] [address] 08/10/2025 1:30 PM EDT Medication Management [facility] MED & PEDS [address] [place] [address] Emeli Montalvo PharmD 230 [place] [address] documented as of this encounter Visit Diagnoses Not on filedocumented in this encounter Additional Health Concerns Assessment Noted Time PHQ-9 Depression Total Score: 11 025 11:27 AM EDT documented as of this encounter Care Teams System Support Analyst Relationship Specialty Start Date End Date Micheline Garcia MD [address] [place] [address] PCP - General Family Medicine 06/03/18 Emeli Montalvo, Michele 230 [place] [address] Pharmacist Internal Medicine 10/19/24 documented as of this encounter
--- OUTSIDE RECORDS SUMMARY | 2025-05-17 20:01 | XMS_ITS | Encounter Summary ---
Author Organization [employer] Address [address] [place] [address] 7 [place] [address] Care Team Providers Care Cardiology Technologist Name Role Phone Micheline Garcia MD Primary Care Provider [phone] Emeli Montalvo PharmD Unavailable [phone] Reason for Visit * Reason Comments Med Refill Encounter Details Date Type Department Care Team ([facility] Contact Info) Description 07/04/2023 Refill [facility] MEDICINE [address] [place], [place] [phone] Micheline Garcia MD [address] [place] [address] Chronic pain syndrome Social History Tobacco Use [...] Description 06/10/2025 1:30 PM EST Clinical Support [facility] MED & PEDS [address] [place] [address] Lakshmi Lambert, AJAY [address] [place], [place] [phone] 08/10/2025 1:30 PM EDT Medication Management [facility] MED & PEDS [address] [place] [address] Emeli Montalvo PharmD 230 [place] [address] documented as of this encounter Visit Diagnoses Diagnosis Chronic pain syndrome documented in this encounter Care Teams Cardiology Technologist Relationship Specialty Start Date End Date Micheline Garcia MD [address] [place] [address] PCP - General Family Medicine 06/03/18 Emeli Montalvo PharmD [address] [place] [address] Pharmacist Internal Medicine 10/19/24 documented as of this encounter
--- OUTSIDE RECORDS SUMMARY | 2025-05-17 20:01 | XMS_ITS | Encounter Summary ---
Author Organization [employer] Address 75 [facility] 7t [place] [address] Care Team Providers Care Family Preservation Officer Name Role Phone Micheline Garcia MD Primary Care Provider [phone] Emeli Montalvo PharmD Unavailable [phone] Encounter Details Date Type Department Care Team (Late st Contact Info) Description 12/25/2024 Orders Only [facility] [address] [place], [place] [phone] Provider, MD Angel Social History Tobacco Use Types Packs/Day Years [...] Description 06/10/2025 1:30 PM EST Clinical Support [facility] MED & PEDS [address] [place] [address] Lakshmi Lambert, RN [address] [place] [address] 08/10/2025 1:30 PM EDT Medication Management [facility] MED & PEDS [address] [place] [address] Emeli Montalvo, PharmD [address] [place] [address] documented as of this encounter Procedures Procedure Name Priority Date/Time Associated Diagnosis Comments US DOPPLER EXT UPPER VENOUS RIGHT Routine 12/21/2024 1:18 PM EDT XR FOOT 3+ VIEWS RIGHT Routine 12/21/2024 1:13 PM EDT documented in this encounter Results * US DOPPLER EXT UPPER VENOUS RIGHT (12/21/2024 1:18 PM EDT) Anatomical Region Laterality Modality Body Ultrasound us Historical Provider MD LEMUS US PROCEDURES Final R esult * XR Foot 3+ Views Right (12/21/2024 1:13 PM EDT) Anatomical Region Laterality Modality Lower Extremities, Foot Right Radiogra phic Imaging us Historical Provider MD LEMUS XR PROCEDURES Final R esult documented in this encounter Visit Diagnoses Not on filedocumented in this encounter Additional Health Concerns Assessment Noted Time PHQ-9 Depression Total Score: 11 09/16/ 025 11:27 AM EDT documented as of this encounter Care Teams Family Preservation Officer Relationship Specialty Start Date End Date Micheline Garcia MD [address] [place] [address] PCP - General Family Medicine 06/03/18 Emeli Montalvo PharmD [address] [place] [address] Pharmacist Internal Medicine 10/19/24 documented as of this encounter
--- OUTSIDE RECORDS SUMMARY | 2025-05-17 20:01 | XMS_ITS | Encounter Summary ---
Author Organization [employer] Address 75 [facility] 7 [place] [address] Care Team Providers Care Cnc Supervisor Name Role Phone Micheline Garcia MD Primary Care Provider [phone] Emeli Montalvo PharmD Unavailable [phone] Reason for Visit * Reason Onset Date Comments Med Refill 11/28/2022 Encounter Details Date Type Department Care Team ([facility] st Contact Info) Description 11/28/2022 Telephone [facility] MED & PEDS [address] [place], [place] [phone] Micheline Garcia MD 505 [place] [address] Med Refill Social History Tobacco Use Types [...] 1:30 PM EST Clinical Support [facility] MED & PEDS [address] [place] [address] Lakshmi Lambert, RN [address] [place] [address] 08/10/2025 1:30 PM EDT Medication Management [facility] MED & PEDS [address] [place] [address] Emeli Montalvo PharmD [address] [place] [address] documented as of this encounter Visit Diagnoses Not on filedocumented in this encounter Care Teams Cnc Supervisor Relationship Specialty Start Date End Date Micheline Garcia MD [address] [place] [address] PCP - General Family Medicine 06/03/18 Emeli Montalvo, RaymundoD [address] [place] [address] Pharmacist Internal Medicine 10/19/24 documented as of this encounter
--- OUTSIDE RECORDS SUMMARY | 2025-05-17 20:01 | XMS_ITS | Encounter Summary ---
Author Organization [employer] Address 75 [facility] 7t [place] [address] Care Team Providers Care Occup Therapist Name Role Phone Micheline Garcia MD Primary Care Provider [phone] Emeli Montalvo PharmD Unavailable [phone] Reason for Visit * Reason Onset Date Comments Med Refill 01/30/2024 Encounter Details Date Type Department Care Team ([facility] st Contact Info) Description 01/30/2024 Telephone [facility] MEDICINE 230 [place] [address] Micheline Garcia MD [address] [place], [place] [phone] Med Refill Social History Tobacco Use Types [...] 12 hr tablet To be sent to: [facility] - [place], [place] - [address] [place] [address] documented in this encounter Plan of Treatment Upcoming Encounters Date Type Department Care Team (Late st Contact Info) Description 06/10/2025 1:30 PM EST Clinical Support [facility] MED & PEDS [address] [place] [address] Lakshmi Lambert, RN [address] [place] [address] 08/10/2025 1:30 PM EDT Medication Management [facility] MED & PEDS [address] [place] [address] Emeli Montalvo PharmD [address] [place] [address] documented as of this encounter Visit Diagnoses Not on filedocumented in this encounter Care Teams Occup Therapist Relationship Specialty Start Date End Date Micheline Garcia MD [address] [place] [address] PCP - General Family Medicine 06/03/18 Emeli Montalvo PharmD [address] [place] [address] Pharmacist Internal Medicine 10/19/24 documented as of this encounter
--- OUTSIDE RECORDS SUMMARY | 2025-05-17 20:01 | XMS_ITS | Encounter Summary ---
Author Organization [employer] Address 75 [facility] 7t [place] [address] Care Team Providers Care Automotive Window Tinter Name Role Phone Micheline Garcia MD Primary Care Provider [phone] Emeli Montalvo PharmD Unavailable [phone] Reason for Visit * Reason Onset Date Comments Med Refill 07/30/2024 Encounter Details Date Type Department Care Team ([facility] st Contact Info) Description 07/30/2024 Telephone [facility] MEDICINE [address] [place] [address] Micheline Garcia MD [address] [place], [place] [phone] Med Refill Social History Tobacco Use Types [...] Miscellaneous Notes * Telephone Encounter - Feng Lozadas - 07/30/2024 10:54 AM EST TC from pt requesting medication refill. Medications needing refill : morphine CR (MS Contin) 60 MG 12 hr tablet To be sent to: [facility] - [place], [place] - [address] [place] [address] documented in this encounter Plan of Treatment Upcoming Encounters Date Type Department Care Team (Late st Contact Info) Description 06/10/2025 1:30 PM EST Clinical Support [facility] MED & PEDS [address] [place] [address] Lakshmi Lambert, RN [address] [place] [address] 08/10/2025 1:30 PM EDT Medication Management [facility] MED & PEDS [address] [place] [address] Emeli Montalvo PharmD [address] [place] [address] documented as of this encounter Visit Diagnoses Not on filedocumented in this encounter Care Teams Automotive Window Tinter Relationship Specialty Start Date End Date Micheline Garcia MD [address] [place] [address] PCP - General Family Medicine 06/03/18 Emeli Montalvo PharmD [address] [place] [address] Pharmacist Internal Medicine 10/19/24 documented as of this encounter
--- OUTSIDE RECORDS SUMMARY | 2025-05-17 20:01 | XMS_ITS | Encounter Summary ---
Author Organization [employer] Address [address] [place] [address] 7 [place] [address] Care Team Providers Care Architecture Drafter Name Role Phone Micheline Garcia MD Primary Care Provider [phone] Emeli Montalvo PharmD Unavailable [phone] Reason for Visit * Reason Onset Date Comments Med Refill 05/28/2023 Encounter Details Date Type Department Care Team ([facility] st Contact Info) Description 05/28/2023 Telephone [facility] MED & PEDS [address] [place], [place] [phone] Micheline Garcia MD [address] [place] [address] Med Refill Social History Tobacco Use Types [...] 24 hr capsule To be sent to: [facility] - [place], [place] - [address] [facility] documented in this encounter Plan of Treatment Upcoming Encounters Date Type Department Care Team (Late st Contact Info) Description 06/10/2025 1:30 PM EST Clinical Support [facility] MED & PEDS [address] [place] [address] Lakshmi Lambert, AJAY [address] [place] [address] 08/10/2025 1:30 PM EDT Medication Management [facility] MED & PEDS [address] [place] [address] Emeli Montalvo PharmD [address] [place] [address] documented as of this encounter Visit Diagnoses Not on filedocumented in this encounter Care Teams Architecture Drafter Relationship Specialty Start Date End Date Micheline Garcia MD [address] [place] [address] PCP - General Family Medicine 06/03/18 Emeli Montalvo, PharmD [address] [place] [address] Pharmacist Internal Medicine 10/19/24 documented as of this encounter
--- OUTSIDE RECORDS SUMMARY | 2025-05-17 20:01 | XMS_ITS | Encounter Summary ---
Author Organization [employer] Address 75 [facility] 7t [place] [address] Care Team Providers Care Route Returner Name Role Phone Micheline Garcia MD Primary Care Provider Emeli Montalvo PharmD Unavailable [phone] Encounter Details Date Type Department Care Team (Late Contact Info) Description 04/11/2023 Abstract [facility] MEDICINE [address] [place], [place] [phone] Dyan Dwyer Social History Tobacco Use Types [...] Description 06/10/2025 1:30 PM EST Clinical Support [facility] MED & PEDS [address] [place] [address] Lakshmi Lambert, RN [address] [place] [address] 08/10/2025 1:30 PM EDT Medication Management [facility] MED & PEDS [address] [place] [address] Emeli Montalvo, PharmD [address] [place] [address] documented as of this encounter Procedures Procedure Name Priority Date/Time Associated Diagnosis Comments COLONOSCOPY Routine 11/06/2012 documented in this encounter Results * Colonoscopy (11/06/2012) Colonoscopy Normal Normal Narrative Dyan Dwyer - 11/06/2012 Recommended 5 year follow up Historical Provider HEALTH MAINTENANCE Final Result documented in this encounter Visit Diagnoses Not on filedocumented in this encounter Care Teams Route Returner Relationship Specialty Start Date End Date Micheline Garcia MD [address] [place] [address] PCP - General Family Medicine 06/03/18 Emeli Montalvo PharmD [address] [place] [address] Pharmacist Internal Medicine 10/19/24 documented as of this encounter
== END 2025-05-17 13:45 | disposition home or self-care (01) ==
LOC: HO.CHCLDS 13:44
PROVIDERS: PCP Pediatrics; Visit Provider Orthopaedic Surgery Foot and Ankle Surgery
DX: E13.69 Other specified diabetes mellitus with other specified complication (principal)
CPT/HCPCS: 36415; 83036